=== PATIENT | male | born 1995 | race African-American/Black ===

== ENCOUNTER 2019-02-16 16:53 | Emergency (ER) | payer SELFPAY ==
[2019-02-16] MEDS ORDERED: LIDOCAINE 1% INJ-PF (10 MG/ML) 30 ML SDV INJ ONE (17:32)
--- NOTE | 2019-02-16 17:32 | ER Document Report ---
ED Medical Screen (RME) - General Chief Complaint: Abscess Stated Complaint: LEFT LEG PAIN Time Seen by Provider: 02/16/19 17:29 Primary Care Provider: JOAQUÍN OMER [Primary Care Provider] - Follow up as needed TRAVEL OUTSIDE OF THE [place] IN LAST 30 DAYS: No - HPI Notes: 02/16/19 17:31 Patient is a 24-year-old male with no significant past medical history who presents emergency department complaining of possible abscess to his left posterior upper leg that has been present for about 3-4 days. No history of MRSA or IV drug abuse. Denies STEPHENS, fever, neck pain, URI, CP, SOB, Abd pain, n/v/d. I have treated and performed a rapid initial assessment of this patient. A comprehensive ED assessment and evaluation of the patient, analysis of test results and completion of medical decision making process will be conducted by additional ED providers. PHYSICAL EXAMINATION: GENERAL: Well-appearing, well-nourished and in no acute distress. A&Ox4. Answers questions appropriately. LUNGS: Breath sounds clear to auscultation bilaterally and equal. No wheezes rales or rhonchi. HEART: Regular rate and rhythm without murmurs, rubs, gallops. Skin: abscess posterior left upper leg. + induration, tenderness, and some fluctuance present. - Related Data Allergies/Adverse Reactions: shrimp Allergy (Verified 02/16/19 16:54) Physical Exam - Vital signs Vitals: Temp Pulse Resp BP Pulse Ox 97.8 F 113 H 16 125/68 98 02/16/19 17:00 02/16/19 17:00 02/16/19 17:00 02/16/19 17:00 02/16/19 17:00 Course - Vital Signs Vital signs: Temp Pulse Resp BP Pulse Ox 97.8 F 113 H 16 125/68 98 02/16/19 17:00 02/16/19 17:00 02/16/19 17:00 02/16/19 17:00 02/16/19 17:00 Doctor's Discharge - Discharge Referrals: JOAQUÍN OMER [Primary Care Provider] - Follow up as needed
[2019-02-16] MEDS ORDERED: CLINDAMYCIN 900 MG/D5W RTU 900 MG/50 ML RTUPB IV ONE (19:11)
--- NOTE | 2019-02-16 20:09 | ER Document Report ---
ED Skin Rash/Insect Bite/Abscs - General Chief Complaint: Abscess Stated Complaint: LEFT LEG PAIN Time Seen by Provider: 02/16/19 17:29 Primary Care Provider: JOAQUÍN OMER [NO LOCAL MD] - Follow up as needed Mode of Arrival: Ambulatory Information source: Patient Notes: Patient is a 24-year-old male comes emergency room complaining of having an abscess on the back of his left thigh. Patient states it started on Wednesday with a small pimple he attempted to pop it and got a little bit of pus out of it he is attempted at least 3 times and the last time was this morning where he got a large amount of pus out of it. Now he states it is painful and is unable to hardly sit or walk on it. Patient states that she hardly even sit on the toilet. Denies any other medical problems does not smoke drink or do drugs. TRAVEL OUTSIDE OF THE [place] IN LAST 30 DAYS: No - HPI Patient complains to provider of: Tender/swollen area Onset: Other - 4 days Onset/Duration: Gradual, Worse Quality of pain: Achy, Sharp, Throbbing Severity: Moderate Pain Level: 3 Skin Character: Abscess, Drainage, Erythema Skin Temperature: Warm Quality of rash: Painful Identify cause: No - He also was a belly pain again Exacerbated by: Denies Relieved by: Denies Similar symptoms previously: No Recently seen / treated by doctor: No - Related Data Allergies/Adverse Reactions: shrimp Allergy (Verified 02/16/19 16:54) Past Medical History - General Information source: Patient - Good morning - Social History Smoking Status: Former Smoker Cigarette use (# per day): No Chew tobacco use (# tins/day): No Smoking Education Provided: No Frequency of alcohol use: None Drug Abuse: None Lives with: Alone Family History: Reviewed & Not Pertinent Patient has suicidal ideation: No Patient has homicidal ideation: No Renal/ Medical History: Denies: Hx Peritoneal Dialysis Review of Systems - Review of Systems Constitutional: No symptoms reported EENT: No symptoms reported Cardiovascular: No symptoms reported Respiratory: No symptoms reported Gastrointestinal: No symptoms reported Genitourinary: No symptoms reported Male Genitourinary: No symptoms reported Musculoskeletal: No symptoms reported Skin: See HPI, Other Hematologic/Lymphatic: No symptoms reported Neurological/Psychological: No symptoms reported Physical Exam - Vital signs Vitals: Temp Pulse Resp BP Pulse Ox 97.8 F 113 H 16 125/68 98 02/16/19 17:00 02/16/19 17:00 02/16/19 17:00 02/16/19 17:00 02/16/19 17:00 Interpretation: Tachycardic - Notes Notes: PHYSICAL EXAMINATION: GENERAL: Patient is a well-nourished well-developed 24-year-old male who is in no apparent distress on physical exam sitting however patient is alert does appear to be in moderate amount of discomfort. HEAD: Atraumatic, normocephalic. EYES: Pupils equal round and reactive to light, extraocular movements intact, sclera anicteric, conjunctiva are normal. NECK: Normal range of motion, supple without lymphadenopathy LUNGS: Breath sounds clear to auscultation bilaterally and equal. No wheezes rales or rhonchi. HEART: Regular rate and rhythm without murmurs Musculoskeletal: Patient cervical soreness in the back of the left thigh. There is an area there that is approximately 10 cm across with a central lesion that is approximately 2 cm round that is oozing a little bit of yellowish-palencia pus. Area is indurated moderately warm to touch. NEUROLOGICAL: Normal speech, normal gait. Normal sensory, motor exams PSYCH: Normal mood, normal affect. SKIN: Warm, Dry, normal turgor, no rashes or lesions noted. Course - Re-evaluation Re-evalutation: 02/16/19 20:10 Patient post I&D is doing much better. There is a large amount of pus that was taken approximately 30 to 40 cc of thick greenish-yellow pus was expressed out of the wound. - Vital Signs Vital signs: Temp Pulse Resp BP Pulse Ox 97.8 F 113 H 16 125/68 98 02/16/19 17:00 02/16/19 17:00 02/16/19 17:00 02/16/19 17:00 02/16/19 17:00 Procedures - Incision and Drainage Left Lower Thigh Time completed: 20:11 Type: Complex Anesthetic type: 1% Lidocaine mL's of anesthetic: 8 Blade size: 11 I&D procedure: Betadine prep applied Incision Method: Incision made by scalpel Amount/type of drainage: 30 ML Discharge - Discharge Clinical Impression: Abscess Condition: Good Disposition: HOME, SELF-CARE Instructions: Abscess ([facility]), Cephalexin ([facility]), Oral Narcotic Medication ([facility]), Post Incision and Drainage Additional Instructions: Home to use warm moist compresses 3-4 times a day for approximately 10 to 20 minutes. Change the dressing out when wet and dirty. Be careful when you peel off the tape and will need to be monitoring there is a little piece of string so you do not pull it out with it. Then reapply the dressing after cleaning or taking a shower. Do not get [facility] a [facility] or bath. You can I enter 1 of these facilities until such time as the wound is closed to self back up. Should you have any concerns or problems he can return to ER for recheck. Highly suggest you come back in about 48 hours for us to remove the packing and to see how the wound is doing. If for any reason you think it is not healing very well or there is more pus coming out to you think there should be come back sooner. Take all of your meds as directed. And please finish them all. Referrals: LOCALMD,NO [NO LOCAL MD] - Follow up as needed
[2019-02-16 20:19] LABS: ABSOLUTE BASOPHILS # (AUTO) 0.1 10^3/uL (0.0-0.2); ABSOLUTE EOSINOPHILS # (AUTO) 0.1 10^3/uL (0.0-0.6); ABSOLUTE LYMPHOCYTES (AUTO) 1.8 10^3/uL (0.5-4.7); ABSOLUTE MONOCYTES (AUTO) 0.9 10^3/uL (0.1-1.4); ABSOLUTE NEUT (AUTO) 3.9 10^3/uL (1.7-8.2); BASOPHILS % (AUTO) 0.8 % (0-2); EOSINOPHILS % (AUTO) 1.1 % (0-6); HEMATOCRIT 39.9 % (37.9-51.0); HEMOGLOBIN 13.7 g/dL (13.5-17.0); LYMPHOCYTES % (AUTO) 26.3 % (13-45); MEAN CORPUSCULAR HEMOGLOBIN 29.2 pg (27.0-33.4); MEAN CORPUSCULAR HGB CONC 34.3 g/dL (32.0-36.0); MEAN CORPUSCULAR VOLUME 85 fl (80-97); MONOCYTES % (AUTO) 13.2 % (3-13); PLATELET COUNT 278 10^3/uL (150-450); RED BLOOD COUNT 4.69 10^6/uL (4.35-5.55); RED CELL DISTRIBUTION WIDTH 12.8 % (11.5-14.0); SEGMENTED NEUTROPHILS % (AUTO) 58.6 % (42-78); TOTAL CELLS COUNTED % (AUTO) 100 %; WHITE BLOOD COUNT 6.7 10^3/uL (4.0-10.5)
[2019-02-16] MEDS ORDERED: HYDROCODONE/ACETAMINOPHEN 5-325 MG TABLET PO ONE (20:19)
[2019-02-16 20:39] VITALS: BP 100/82
== END 2019-02-16 20:39 | disposition home or self-care (01) ==
LOC: ER 16:53
PROC: 0H9JXZZ Drainage of Left Upper Leg Skin, External Approach (ICD-10-PCS; principal; 2019-02-16)
DX: L02.416 Cutaneous abscess of left lower limb (principal); M79.605 Pain in left leg; Z87.891 Personal history of nicotine dependence
CPT/HCPCS: 36415; 87040; 87070; 87205; 85025; 87075; 87077; 87186; 10060; A6266

== ENCOUNTER 2019-04-09 00:34 | Emergency (ER) | payer SELFPAY ==
[2019-04-09 00:48] VITALS: BP 137/69
== END 2019-04-09 04:50 | disposition left against medical advice (07) ==
LOC: ER 00:34
DX: Z53.21 Procedure and treatment not carried out due to patient leaving prior to being seen by health care provider (principal)

== ENCOUNTER 2019-04-09 08:21 | Emergency (ER) | payer SELFPAY ==
--- NOTE | 2019-04-09 09:50 | RADIOLOGY REPORT (SQ) ---
EXAM DESCRIPTION: FINGER RIGHT COMPLETED DATE/TIME: 04/09/2019 9:39 am REASON FOR STUDY: pain in index finger, swollen COMPARISON: None. NUMBER OF VIEWS: Three views right hand and index finger LIMITATIONS: None. FINDINGS: Suspect soft tissue swelling along the index finger. No fracture or bone lesions. No bon e erosion. No radiopaque foreign body. OTHER: No other significant finding. IMPRESSION: As above. TECHNICAL DOCUMENTATION: JOB ID: [id number] Reading location - IP/workstation name: [email or web address]
[2019-04-09] MEDS ORDERED: MUPIROCIN 2% OINTMENT 22 GM TP ONE (10:17)
--- NOTE | 2019-04-09 10:22 | ER Document Report ---
HPI - HPI Patient complains to provider of: index finger pain Time Seen by Provider: 04/09/19 09:01 Onset: Other - 3 days Onset/Duration: Persistent Quality of pain: Achy, Throbbing Severity: Severe Pain Level: 5 Context: Patient presents emergency department with complaints of right index finger tip pain. Patient reports he bites his nails. He reports he noted pus formation tried to poke it to drain it but it did not help. Denies other symptoms such as fever vomiting diarrhea but reports pain when touched to the area. Associated Symptoms: None Exacerbated by: Movement Relieved by: Denies Similar symptoms previously: No Recently seen / treated by doctor: No - CONSTITUTIONAL Constitutional: DENIES: Fever, Chills Past Medical History - General Information source: Patient - Social History Smoking Status: Former Smoker Frequency of alcohol use: None Drug Abuse: None Family History: Reviewed & Not Pertinent Patient has suicidal ideation: No Patient has homicidal ideation: No - Medical History Medical History: Negative Renal/ Medical History: Denies: Hx Peritoneal Dialysis Surgical Hx: Negative Vertical Provider Document - CONSTITUTIONAL Agree With Documented VS: Yes Exam Limitations: No Limitations General Appearance: WD/WN, No Apparent Distress - winces when finger palpated - INFECTION CONTROL TRAVEL OUTSIDE OF THE [place] IN LAST 30 DAYS: No - HEENT HEENT: Atraumatic, Pharyngeal Erythema - NECK Neck: Supple - RESPIRATORY Respiratory: No Respiratory Distress - CARDIOVASCULAR Cardiovascular: Regular Rate - MUSCULOSKELETAL/EXTREMETIES Musculoskeletal/Extremeties: Tender - left index finger swollen, ttp, erythema - NEURO Level of Consciousness: Awake, Alert Motor/Sensory: No Motor Deficit - DERM Integumentary: Warm, Dry Course - Re-evaluation Re-evalutation: 04/09/19 10:21 Will soak finger to evaluate more clearly for possibility felon vs paronychia - Vital Signs Vital signs: Temp Pulse Resp BP Pulse Ox 97.4 F 62 18 133/76 H 97 04/09/19 08:30 04/09/19 08:30 04/09/19 08:30 04/09/19 08:30 04/09/19 08:30
--- NOTE | 2019-04-09 10:54 | ER Document Report ---
ED Medical Screen (RME) - General Chief Complaint: Hand Pain Stated Complaint: FINGER PAIN Time Seen by Provider: 04/09/19 09:01 Mode of Arrival: Ambulatory Information source: Patient Notes: Patient presents emergency department with complaints of right index finger tip pain. Patient reports he bites his nails. He reports he noted pus formation tried to poke it to drain it but it did not help. Denies other symptoms such as fever vomiting diarrhea but reports pain when touched to the area. Dr. Hood in to assess advises lab work, possible tenosynovitis I have greeted and performed a rapid initial assessment of this patient. A comprehensive ED assessment and evaluation of the patient, analysis of test results and completion of the medical decision making process will be conducted by additional ED providers. Dictation of this chart was performed using voice recognition software; therefore, there may be some unintended grammatical errors. TRAVEL OUTSIDE OF THE [place] IN LAST 30 DAYS: No - Related Data Allergies/Adverse Reactions: shrimp Allergy (Verified 02/16/19 16:54) Past Medical History - Social History Frequency of alcohol use: None Drug Abuse: None Renal/ Medical History: Denies: Hx Peritoneal Dialysis Physical Exam - Vital signs Vitals: Temp Pulse Resp BP Pulse Ox 97.4 F 62 18 133/76 H 97 04/09/19 08:30 04/09/19 08:30 04/09/19 08:30 04/09/19 08:30 04/09/19 08:30 Course - Vital Signs Vital signs: Temp Pulse Resp BP Pulse Ox 97.4 F 62 18 133/76 H 97 04/09/19 08:30 04/09/19 08:30 04/09/19 08:30 04/09/19 08:30 04/09/19 08:30
[2019-04-09] MEDS ORDERED: OXYCODONE-ACETAMINOPHEN 5-325 MG TABLET PO ONE (10:55)
[2019-04-09 11:44] LABS: ABSOLUTE BASOPHILS # (AUTO) 0.1 10^3/uL (0.0-0.2); ABSOLUTE EOSINOPHILS # (AUTO) 0.1 10^3/uL (0.0-0.6); ABSOLUTE LYMPHOCYTES (AUTO) 1.4 10^3/uL (0.5-4.7); ABSOLUTE MONOCYTES (AUTO) 0.8 10^3/uL (0.1-1.4); ABSOLUTE NEUT (AUTO) 3.4 10^3/uL (1.7-8.2); EOSINOPHILS % (AUTO) 1.6 % (0-6); HEMATOCRIT 39.3 % (37.9-51.0); HEMOGLOBIN 13.2 g/dL (13.5-17.0); LYMPHOCYTES % (AUTO) 25.1 % (13-45); MEAN CORPUSCULAR HEMOGLOBIN 28.5 pg (27.0-33.4); MEAN CORPUSCULAR HGB CONC 33.6 g/dL (32.0-36.0); MEAN CORPUSCULAR VOLUME 85 fl (80-97); MONOCYTES % (AUTO) 14.2 % (3-13); PLATELET COUNT 348 10^3/uL (150-450); RED BLOOD COUNT 4.63 10^6/uL (4.35-5.55); RED CELL DISTRIBUTION WIDTH 13.8 % (11.5-14.0); SEGMENTED NEUTROPHILS % (AUTO) 58.1 % (42-78); TOTAL CELLS COUNTED % (AUTO) 100 %; WHITE BLOOD COUNT 5.8 10^3/uL (4.0-10.5)
[2019-04-09 11:59] LABS: ALANINE AMINOTRANSFERASE 38 U/L (21-72); ALBUMIN 3.7 g/dL (3.5-5.0); ALKALINE PHOSPHATASE 75 U/L (38-126); ANION GAP 5 (5-19); ASPARTATE AMINO TRANSFERASE 25 U/L (17-59); BILIRUBIN,DIRECT 0.2 mg/dL (0.0-0.4); BILIRUBIN,TOTAL 0.2 mg/dL (0.2-1.3); BLOOD UREA NITROGEN 11 mg/dL (7-20); CALCIUM 9.1 mg/dL (8.4-10.2); CARBON DIOXIDE 31 mmol/L (22-30); CHLORIDE 106 mmol/L (98-107); GLUCOSE 95 mg/dL (75-110); POTASSIUM 4.5 mmol/L (3.6-5.0); SODIUM 142.4 mmol/L (137-145); TOTAL PROTEIN 7.6 g/dL (6.3-8.2)
[2019-04-09 12:27] LABS: ERYTHROCYTE SEDIMENTATION RATE 47 mm/hr (0-15)
[2019-04-09] MEDS ORDERED: LIDOCAINE 1% INJ-PF (10 MG/ML) 30 ML SDV INJ ONE (13:45)
[2019-04-09 14:32] VITALS: BP 115/81
[2019-04-09] MEDS ORDERED: HYDROCODONE/ACETAMINOPHEN 5-325 MG (6 TAB/ER DISP) PO PRN (14:42)
[2019-04-09] MEDS ORDERED: CEFTRIAXONE INJ 1000 MG VIAL IM ONE (14:42)
--- NOTE | 2019-04-09 14:43 | ER Document Report ---
ED General - General Mode of Arrival: Ambulatory TRAVEL OUTSIDE OF THE [place] IN LAST 30 DAYS: No <SILVIA CESAR - Last Filed: 04/09/19 14:41> <FERNANDEZ MYERS - Last Filed: 04/09/19 14:51> - General Chief Complaint: Hand Pain Stated Complaint: FINGER PAIN Time Seen by Provider: 04/09/19 09:01 Notes: Patient presents emergency department with complaints of right index finger tip pain. Patient reports he bites his nails. He reports he noted pus formation tried to poke it to drain it but it did not help. Denies other symptoms such as fever vomiting diarrhea but reports pain when touched to the area. Dr. Hood in to assess advises lab work, possible tenosynovitis (SILVIA CESAR) - Related Data Allergies/Adverse Reactions: shrimp Allergy (Verified 02/16/19 16:54) Past Medical History - General Information source: Patient - Social History Smoking Status: Never Smoker Frequency of alcohol use: None Drug Abuse: Marijuana Family History: Reviewed & Not Pertinent Patient has suicidal ideation: No Patient has homicidal ideation: No Renal/ Medical History: Denies: Hx Peritoneal Dialysis <SILVIA CESAR - Last Filed: 04/09/19 14:41> - Vital signs Vitals: Temp Pulse Resp BP Pulse Ox 97.4 F 62 18 133/76 H 97 04/09/19 08:30 04/09/19 08:30 04/09/19 08:30 04/09/19 08:30 04/09/19 08:30 Course - Laboratory Result Diagrams: 04/09/19 11:30 04/09/19 11:30 <SILVIA CESAR - Last Filed: 04/09/19 14:41> - Laboratory Result Diagrams: 04/09/19 11:30 04/09/19 11:30 <FERNANDEZ MYERS - Last Filed: 04/09/19 14:51> - Vital Signs Vital signs: Temp Pulse Resp BP Pulse Ox 97.9 F 76 16 115/81 100 04/09/19 14:31 04/09/19 14:31 04/09/19 14:31 04/09/19 14:31 04/09/19 14:31 - Laboratory Laboratory results interpreted by me: 04/09/19 04/09/19 11:30 11:30 Hgb 13.2 L Monocytes % 14.2 H ESR 47 H Carbon Dioxide 31 H Discharge <SILVIA CESAR - Last Filed: 04/09/19 14:41> <FERNANDEZ MYERS - Last Filed: 04/09/19 14:51> - Discharge Clinical Impression: Felon of finger of right hand Condition: Stable Disposition: HOME, SELF-CARE Prescriptions: Cephalexin Monohydrate [Keflex 500 mg Capsule] 500 mg PO Q6H 7 Days capsule
[2019-04-09] MEDS ORDERED: LIDOCAINE 1% INJ-PF (10 MG/ML) 30 ML SDV ONE (14:55)
--- NOTE | 2019-04-09 15:03 | ER Document Report ---
ED General - General Chief Complaint: Hand Pain Stated Complaint: FINGER PAIN Time Seen by Provider: 04/09/19 09:01 Mode of Arrival: Ambulatory Notes: 24-year-old healthy [id number] male presents the emergency department for right index finger pain x4 days. He states that he has had swelling and redness that extends past his DIP of his right index finger. He says the pain is severe, acute and throbbing in nature. He states "I can feel my heartbeat in my finger". He is able to flex and extend the finger but his range of motion is severely limited by hand pain. Patient denies fever, chills, nausea, vomiting, swelling of the right hand, red streaks going up his arms, or any other symptoms. TRAVEL OUTSIDE OF THE [place] IN LAST 30 DAYS: No - Related Data Allergies/Adverse Reactions: shrimp Allergy (Verified 02/16/19 16:54) Past Medical History - General Information source: Patient - Social History Smoking Status: Never Smoker Frequency of alcohol use: None Drug Abuse: Marijuana Family History: Reviewed & Not Pertinent Patient has suicidal ideation: No Patient has homicidal ideation: No Renal/ Medical History: Denies: Hx Peritoneal Dialysis Review of Systems - Review of Systems Constitutional: See HPI EENT: No symptoms reported Cardiovascular: No symptoms reported Respiratory: No symptoms reported Gastrointestinal: See HPI Genitourinary: No symptoms reported Male Genitourinary: No symptoms reported Musculoskeletal: See HPI Skin: See HPI Hematologic/Lymphatic: No symptoms reported Neurological/Psychological: No symptoms reported Physical Exam - Vital signs Vitals: Temp Pulse Resp BP Pulse Ox 97.4 F 62 18 133/76 H 97 04/09/19 08:30 04/09/19 08:30 04/09/19 08:30 04/09/19 08:30 04/09/19 08:30 - Notes Notes: PHYSICAL EXAMINATION: Reviewed vital signs and charting by RN GENERAL: Alert, interacts well. No acute distress. HEAD: Normocephalic, atraumatic. EYES: Pupils equal, round, and reactive to light. Extraocular movements intact. ENT: Oral mucosa moist, tongue midline. NECK: Full range of motion. Supple. Trachea midline. LUNGS: Clear to auscultation bilaterally, no wheezes, rales, or rhonchi. No re spiratory distress. HEART: Regular rate and rhythm. No murmur ABDOMEN: soft, non-tender. No distention. Bowel sounds present EXTREMITIES: Moves all 4 extremities spontaneously. Right index finger edema, erythema, acute tenderness to light palpation, no evidence of purulent discharge PSYCH: Normal affect, normal mood. SKIN: Warm, dry, normal turgor. No rashes or lesions noted. Course - Re-evaluation Re-evalutation: 04/09/19 15:00 Overall well-appearing, patient is in acute distress. Presentation most consistent with a felon of the right index finger. I performed an incision and drainage after performing a digital block of the right index finger by making a small incision with a #15 blade on the medial and lateral aspect of the right index finger approximately 2 to 3 mm in length. There was blood but no purulent discharge. A wound culture was sent. Lab work was obtained and patient had no leukocytosis and was afebrile. It was a significant felon so I instructed the patient it was critical that he has 24-hour follow-up. I gave him the information for [facility] for surgeries and if that was not feasible he needed to return to the emergency department for 24-hour follow-up here. I gave him Rocephin 1 g IM here in the emergency department and prescribed him Keflex 500 mg 4 times per day for 7 days. At this time he is stable for discharge. - Vital Signs Vital signs: Temp Pulse Resp BP Pulse Ox 97.9 F 76 16 115/81 100 04/09/19 14:31 04/09/19 14:31 04/09/19 14:31 04/09/19 14:31 04/09/19 14:31 - Laboratory Result Diagrams: 04/09/19 11:30 04/09/19 11:30 Laboratory results interpreted by me: 04/09/19 04/09/19 11:30 11:30 Hgb 13.2 L Monocytes % 14.2 H ESR 47 H Carbon Dioxide 31 H Procedures - Incision and Drainage Right Finger 2nd digit Type: Simple Anesthetic type: 1% Lidocaine Blade size: 16 I&D procedure: Shurclens applied Incision Method: Incision made by scalpel Discharge - Discharge Clinical Impression: Felon of finger of right hand Condition: Stable Disposition: HOME, SELF-CARE Additional Instructions: You were seen in the emergency department this afternoon for a felon of your right index finger. We performed an incision and drainage but were not able to express any purulent fluid from it. We did send it for culture. Also, you were given a shot in the emergency department of an antibiotic called Rocephin. Following the Rocephin, I have given you a prescription for a medication called Keflex 500 mg that you will take 1 capsule every 6 hours for 7 days. Because of the infection it is critically important that you get 24-hour follow-up. I am giving you the information for an orthopedic practice and I want you to call them first thing in the morning to see if you can get in to see them that day. There may be an associated cost factor so if that is a problem I need you to come into the emergency department for 24-hour follow-up tomorrow, April 10. If the orthopedic practice cannot see you tomorrow come to the emergency department for a recheck. If you start to develop fever, severe pain in the index finger, you get worsening swelling of the hand or your arm, you become very ill, you get intractable nausea or vomiting, or have any other concerning symptoms return to the emergency department sooner. Prescriptions: Cephalexin Monohydrate [Keflex 500 mg Capsule] 500 mg PO Q6H 7 Days capsule Referrals: SRIRAM NICOLE MD [ACTIVE STAFF] - Follow up as needed
== END 2019-04-09 15:21 | disposition home or self-care (01) ==
LOC: ER 08:21
DX: L03.011 Cellulitis of right finger (principal); M79.644 Pain in right finger(s); Z91.013 Allergy to seafood
CPT/HCPCS: 99283; 96372; 36415; 87070; 87205; 85025; 85652; 80053; 73140; 10060; J3490; J0696

== ENCOUNTER 2019-05-07 16:13 | Emergency (ER) | payer SELFPAY ==
[2019-05-07 16:22] VITALS: BP 120/70
[2019-05-07] MEDS ORDERED: SULFAMETHOXAZOLE/TRIMETHOPRIM 800-160 MG TABLET PO ONE (16:52)
[2019-05-07] MEDS ORDERED: CEPHALEXIN 500 MG CAPSULE PO ONE (16:52)
[2019-05-07] MEDS ORDERED: MUPIROCIN 2% OINTMENT 22 GM TP ONE (16:53)
--- NOTE | 2019-05-07 16:55 | ER Document Report ---
ED General - General Chief Complaint: Finger Injury Stated Complaint: FINGER PAIN Time Seen by Provider: 05/07/19 16:35 Mode of Arrival: Ambulatory Information source: Patient Notes: 24-year-old male presented to ED for complaint of right pointer finger pain due to an injury 2 weeks ago. He states the finger nail is hanging off and that is most what the pain is now in the finger. He states he also has facial pain from a pimple that he popped 2 weeks ago and is now painful and draining. The area to his face does have crusty yellow drainage. He also has a similar sore to his back he states that he scratched a pimple on his back and caused the sore. He states he knows he needed to get treated for this on his face but the main reason he is here today is because his mother and aunt are harassing him and talking about him because he is "homosexual "and they want him to be tested for HIV. He has agreed to be tested. TRAVEL OUTSIDE OF THE [place] IN LAST 30 DAYS: No - HPI Onset: Other - The pain to the finger has been for 2 weeks the pain to his face has been a week. Onset/Duration: Gradual, Persistent Quality of pain: Achy, Sharp Severity: Mild Pain Level: 1 Associated symptoms: Other - Facial sore open draining after he popped a pimple a week ago and sore finger from injury 2 weeks ago that has a nail that is just hanging on by a piece of skin. Exacerbated by: Other - Every time the fingernail moves or he touches the sore on his face Relieved by: Denies Similar symptoms previously: Yes Recently seen / treated by doctor: Yes - Related Data Allergies/Adverse Reactions: shrimp Allergy (Verified 02/16/19 16:54) Past Medical History - General Information source: Patient - Social History Smoking Status: Current Some Day Smoker Cigarette use (# per day): Yes Smoking Education Provided: Yes - 4 minutes Frequency of alcohol use: Rare Drug Abuse: Marijuana Family History: Reviewed & Not Pertinent - Past Medical History Cardiac Medical History: Reports: None Pulmonary Medical History: Reports: None EENT Medical History: Reports: None Neurological Medical History: Reports: None Endocrine Medical History: Reports: None Renal/ Medical History: Reports: None Malignancy Medical History: Reports None GI Medical History: Reports: None Musculoskeletal Medical History: Reports None Skin Medical History: Reports Hx Cellulitis, Reports Hx MRSA Psychiatric Medical History: Reports: None Traumatic Medical History: Reports: None Infectious Medical History: Reports: Hx MRSA Surgical Hx: Negative Past Surgical History: Reports: None Review of Systems - Review of Systems Constitutional: No symptoms reported EENT: No symptoms reported Cardiovascular: No symptoms reported Respiratory: No symptoms reported Gastrointestinal: No symptoms reported Genitourinary: No symptoms reported Male Genitourinary: No symptoms reported Musculoskeletal: Other - Pain to right index finger due to fingernail hanging on by a piece of skin Skin: Lesions - Crusty yellow lesion to the face and back Hematologic/Lymphatic: No symptoms reported Neurological/Psychological: No symptoms reported -: Yes All other systems reviewed and negative Physical Exam - Vital signs Vitals: Temp Pulse Resp BP Pulse Ox 99.3 F 105 H 18 120/70 98 05/07/19 16:20 05/07/19 16:20 05/07/19 16:20 05/07/19 16:20 05/07/19 16:20 Interpretation: Normal - General General appearance: Appears well, Alert - HEENT Head: Normocephalic, Atraumatic Eyes: Normal Pupils: PERRL - Respiratory Respiratory status: No respiratory distress Chest status: Nontender Breath sounds: Normal Chest palpation: Normal - Cardiovascular Rhythm: Regular Heart sounds: Normal auscultation Murmur: No - Abdominal Inspection: Normal Distension: No distension Bowel sounds: Normal Tenderness: Nontender Organomegaly: No organomegaly - Back Back: Normal, Nontender - Extremities General upper extremity: Normal inspection, Normal color, Normal ROM, Normal temperature General lower extremity: Normal inspection, Nontender, Normal color, Normal ROM, Normal temperature, Normal weight bearing. No: Jennifer's sign Hand: Tender - And index finger fingernail most of the way off of his finger hanging by a small piece of skin from an injury 2 weeks ago, Nail injury, No evidence of human bite, No evidence of FB - Neurological Neuro grossly intact: Yes Cognition: Normal Orientation: AAOx4 Ishan Coma Scale Eye Opening: Spontaneous Ishan Coma Scale Verbal: Oriented Ishan Coma Scale Motor: Obeys Commands Ishan Coma Scale Total: 15 Speech: Normal Motor strength normal: LUE, RUE, LLE, RLE Sensory: Normal - Psychological Associated symptoms: Normal affect, Normal mood - Skin Skin Temperature: Warm Skin Moisture: Dry Skin Color: Normal Skin irregularity: Lesion - Crusty yellow lesion to face and back Location of irregularity: Face, Back Irregularity with: Tenderness, Crusting, Inflammation, Weeping Course - Re-evaluation Re-evalutation: 05/07/19 20:45 Patient's mother was that with him on his visit and she was encouraging patient to tell what her concerns were. Patient stated that mother and aunt were concerned that he was HIV positive because he is homosexual. He requested that the HIV test be completed. It was reactive. It will be sent out for a confirmation. Patient was instructed to follow-up with the health department in the next couple days for follow-up. Patient was treated with Keflex and Bactrim for his impetigo as well Bactroban due to his history of MRSA positive infection in the past. Patient verbalized understanding and agreement with treatment plan and patient was discharged home. He was - Vital Signs Vital signs: Temp Pulse Resp BP Pulse Ox 99.3 F 105 H 18 120/70 98 05/07/19 16:20 05/07/19 16:20 05/07/19 16:20 05/07/19 16:20 05/07/19 16:20 Discharge - Discharge Clinical Impression: Impetigo face, Impetigo back, Fingernail injury right index finger, HIV antibody positive Condition: Stable Disposition: HOME, SELF-CARE Instructions: [facility] Additional Instructions: Impetigo You have a skin infection called impetigo. This infection is caused by germs growing between the skin layers. It spreads easily and is quite contagious. The usual treatment is with oral antibiotics, along with washing the sores and application of an antibiotic ointment. There's a new prescription antibiotic ointment which may allow some cases of impetigo to be treated without pills. Healing takes about a week. All involved areas should recover with no scarring. If there is significant worsening, or if new symptoms (such as dark urine, fever, chills, or red streaks) arise, call the doctor or return for re- examination. Cephalexin The antibiotic you've been prescribed is a member of the cephalosporin class. This type of antibiotic covers a wide variety of infections, including t hose of the skin, lungs, and urinary tract. It's useful for staph infections. This antibiotic is slightly similar to the penicillin family. In rare cases, a person who is allergic to penicillin will also be allergic to this medication. If you have had a severe allergic reaction to penicillin, and have not taken this antibiotic since that time, notify your doctor. Antibiotics which cover many germs ("broad spectrum" antibiotics) are more likely to cause diarrhea or "yeast" infections. Women prone to vaginal yeast problems may suffer an attack after taking this antibiotic. In infants, oral thrush (white spots "stuck" on the cheek) or yeast diaper rash may result. See your doctor if these problems occur. Call at once if you develop itching, hives, shortness of breath, or lightheadedness. Sulfa Medications The antibiotic you have received is a member of the sulfa family. These antibiotics are commonly used for eye, ear, lung, or urinary infections. Sulfa antibiotics are best taken on an empty stomach. Extra glasses of water help the kidney process the antibiotic. Sulfas are not recommended for infants under two months, or for women near the end of . Occasional side effects can include nausea or diarrhea. Stop the medication and notify your doctor at once if you develop any skin rash, bruising, jaundice (yellow color of the skin), itching, swelling, joint pain, faintness, or shortness of breath, or if you note any other new or unusual symptoms. Soap Cleansing Gently wash the wound daily using a mild soap (like Ivory, Phisoderm, Neutrogena). Use warm water, rubbing gently until all debris, ooze, and crusting have been washed from the wound. Allow to dry briefly (about 10 minutes) after cleaning. Repeat this cleansing at least three times a day until healed. Bactroban Ointment Bactroban is very effective against the germs that cause infection within the skin. It's useful for impetigo and other superficial infections. Deeper infections require antibiotics by mouth or by shot. Apply the medicine three times a day for one week, or longer if your doctor has advised it. Stop the medicine and call your doctor if you develop large blisters, severe itching, increasing pain, swelling, fever, or spreading redness. HIV antibody test came back reactive or positive. It has been sent to the lab for confirmation. You will need to follow-up with the health department this week. FOLLOW-UP CARE: If you have been referred to a physician for follow-up care, call the physicians office for an appointment as you were instructed or within the next two days. If you experience worsening or a significant change in your symptoms, notify the physician immediately or return to the Emergency Department at any time for re-evaluation. Prescriptions: Cephalexin Monohydrate [Keflex 500 mg Capsule] 500 mg PO Q6H #28 capsule Sulfamethoxazole/Trimethoprim [Bactrim Ds Tablet] 1 each PO BID #20 tablet Forms: Smoking Cessation Education
== END 2019-05-07 18:37 | disposition home or self-care (01) ==
LOC: ER 16:13
DX: S61.300A Unspecified open wound of right index finger with damage to nail, initial encounter (principal); X58.XXXA Exposure to other specified factors, initial encounter; L01.00 Impetigo, unspecified; F17.210 Nicotine dependence, cigarettes, uncomplicated; Z71.6 Tobacco abuse counseling; Z21 Asymptomatic human immunodeficiency virus [HIV] infection status; Z86.14 Personal history of Methicillin resistant Staphylococcus aureus infection; Z91.013 Allergy to seafood
CPT/HCPCS: 99283; 36415; 86701 ×2; 86702; J3490

== ENCOUNTER 2019-11-17 05:45 | Emergency (ER) | payer SELFPAY ==
--- NOTE | 2019-11-17 08:37 | ER Document Report ---
ED General - General Chief Complaint: Abscess Stated Complaint: HAND WOUND Time Seen by Provider: 11/17/19 08:25 Notes: CHIEF COMPLAINT: Abscess to right wrist for 4 days HPI: 24-year-old HIV-positive male sending to the emergency department c omplaining of an abscess on the right wrist over the last 4 days. Patient had a similar infection in February of last year states antibiotics made it better. Patient states he began picking at the area last night and it began draining. He has not been using hot compresses on the area. He denies fever or other complaints at this time ROS: See HPI - all other systems were reviewed and are otherwise negative Constitutional: no fever Integumentary: + rash, + abscess Allergy: no hives Musculoskeletal: + extremity pain or swelling Neurological: no numbness/tingling, no weakness MEDICATIONS: I agree with the patient medications as charted by the RN. ALLERGIES: I agree with the allergies as charted by the RN. PAST MEDICAL HISTORY/PAST SURGICAL HISTORY: Reviewed and agree as charted by RN. SOCIAL HISTORY: Reviewed and agree as charted by RN. FAMILY HISTORY: No significant familial comorbid conditions directly related to patient complaint EXAM: Reviewed vital signs as charted by RN. CONSTITUTIONAL: Alert and oriented and responds appropriately to questions. Well-appearing; well-nourished, no acute distress. Difficult to examine as patient will not stop putting his make-up on during the exam HEAD: Normocephalic; atraumatic EYES: Conjunctivae clear, sclerae non-icteric ENT: normal nose; no rhinorrhea; moist mucous membranes; pharynx without lesions noted NECK: Supple without meningismus CARD: symmetric distal pulses RESP: Normal chest excursion without splinting or tachypnea ABD/GI: non-distended BACK: The back appears normal EXT: Normal ROM in all joints; no cyanosis, no effusions, no edema SKIN: Normal color for age and race; warm; dry; good turgor; raised mildly indurated area measuring 3 cm on the volar right wrist radial side. No fluctuant areas. It is draining a small amount of purulent material. No significant cellulitis surrounding the area. NEURO: Moves all extremities equally; Motor and sensory function intact PSYCH: The patient's mood and manner are appropriate. Grooming and personal hygiene are appropriate. MDM: 24-year-old HIV-positive male with an abscess on the right wrist that is draining. I did offer further incision and drainage with the patient declines at this time. He will do warm compresses at home, had an abscess similar to this in February of last year per the records, states Bactrim and Keflex resolve the infection. Discussed return instructions for worsening symptoms TRAVEL OUTSIDE OF THE [place] IN LAST 30 DAYS: No - Related Data Allergies/Adverse Reactions: shrimp Allergy (Verified 11/17/19 05:54) Past Medical History - Social History Smoking Status: Current Every Day Smoker Frequency of alcohol use: None Drug Abuse: Marijuana Family History: Reviewed & Not Pertinent Patient has suicidal ideation: No Patient has homicidal ideation: No Pulmonary Medical History: Reports: Hx Asthma Renal/ Medical History: Denies: Hx Peritoneal Dialysis Skin Medical History: Reports Hx Cellulitis, Reports Hx MRSA Infectious Medical History: Reports: Hx MRSA Physical Exam - Vital signs Vitals: Temp Pulse BP Pulse Ox 98.4 F 113 H 132/68 H 98 11/17/19 05:52 11/17/19 05:52 11/17/19 05:52 11/17/19 05:52 Course - Vital Signs Vital signs: Temp Pulse Resp BP Pulse Ox 98.3 F 107 H 18 134/63 H 98 11/17/19 07:01 11/17/19 07:01 11/17/19 07:01 11/17/19 07:01 11/17/19 07:01 Discharge - Discharge Clinical Impression: Abscess of skin of right wrist Condition: Stable Disposition: HOME, SELF-CARE Instructions: Abscess ([facility]) Additional Instructions: 1. follow up with your primary care provider for further evaluation in 2-3 days 2. medicines as prescribed, take Tylenol or Motrin for pain 3. return sooner for any worsening condition, increasing redness or onset of fever 4. apply warm compresses to the wound area 2-3 times daily Prescriptions: Sulfamethoxazole/Trimethoprim [Bactrim Ds Tablet] 2 tab PO BID #28 tablet Cephalexin Monohydrate [Keflex 500 mg Capsule] 500 mg PO Q6H 5 Days capsule Referrals: FERNANDO LOGAN MD [ACTIVE STAFF] - Follow up as needed
[2019-11-17 08:55] VITALS: BP 115/76
== END 2019-11-17 08:55 | disposition home or self-care (01) ==
LOC: ER 05:45
DX: L02.413 Cutaneous abscess of right upper limb (principal); Z21 Asymptomatic human immunodeficiency virus [HIV] infection status; J45.909 Unspecified asthma, uncomplicated; F17.200 Nicotine dependence, unspecified, uncomplicated; F12.10 Cannabis abuse, uncomplicated; Z86.14 Personal history of Methicillin resistant Staphylococcus aureus infection; Z91.013 Allergy to seafood
CPT/HCPCS: 99282

== ENCOUNTER 2020-08-15 08:49 | Emergency (ER) | payer SELFPAY ==
[2020-08-15 08:56] VITALS: BP 131/72
[2020-08-15] MEDS ORDERED: SILVER SULFADIAZINE 1% CREAM 25 GM TP ONE (09:14)
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
== END 2020-08-15 09:45 | disposition home or self-care (01) ==
LOC: ER 08:49
DX: T22.211A Burn of second degree of right forearm, initial encounter (principal); X12.XXXA Contact with other hot fluids, initial encounter; Y93.G3 Activity, cooking and baking; Y92.009 Unspecified place in unspecified non-institutional (private) residence as the place of occurrence of the external cause; F17.200 Nicotine dependence, unspecified, uncomplicated; F12.10 Cannabis abuse, uncomplicated; J45.909 Unspecified asthma, uncomplicated; Z86.14 Personal history of Methicillin resistant Staphylococcus aureus infection; Z91.013 Allergy to seafood
CPT/HCPCS: 99283

== ENCOUNTER 2020-09-11 19:42 | Inpatient (IN) | payer SELFPAY ==
--- NOTE | 2020-09-11 21:17 | ER Document Report ---
ED Medical Screen (RME) - General Stated Complaint: SHORTNESS OF BREATH CHEST PAIN FEVER Time Seen by Provider: 09/11/20 21:08 Notes: Patient is a 25-year-old male presents emergency department with a chief complaint of shortness of breath, chest pain, difficulty breathing. Patient does have some rhinorrhea. Patient has a history of HIV, but is not currently on any medication. Patient does feel depressed and sad. Patient is not he has had any contact with anybody who tested positive for COVID-19. States when he lays down, he feels like he has a fever. Exam: Tachycardic I have greeted and performed a rapid initial assessment of this patient. A comprehensive ED assessment and evaluation of the patient, analysis of test results and completion of medical decision making process will be conducted by an additional ED providers. TRAVEL OUTSIDE OF THE [place] IN LAST 30 DAYS: No - Related Data Allergies/Adverse Reactions: shrimp Allergy (Verified 08/15/20 09:06) Past Medical History Pulmonary Medical History: Reports: Hx Asthma Renal/ Medical History: Denies: Hx Peritoneal Dialysis Skin Medical History: Reports Hx Cellulitis, Reports Hx MRSA Infectious Medical History: Reports: Hx MRSA
[2020-09-11] MEDS ORDERED: NORMAL SALINE 1000 ML 1,000 ML IV ONE (21:19)
--- NOTE | 2020-09-11 22:26 | RADIOLOGY REPORT (SQ) ---
CLINICAL INDICATION: Shortness of breath. TECHNIQUE: A single portable AP view was obtained of the chest at 2115 hours. COMPARISON: None. FINDINGS: The cardiomediastinal silhouette is normal. The lungs demonstrate airspace consolidative change right upper lobe with a similar patchy area left lower lobe. No evidence of effusion or pneumothorax. The visualized bones are unremarkable. IMPRESSION: Bilateral airspace disease consistent with bilateral pneumonia.
[2020-09-11] MEDS ORDERED: ACETAMINOPHEN 325 MG TABLET PO ONE (23:03)
--- NOTE | 2020-09-11 23:09 | ER Document Report ---
ED General - General Chief Complaint: Arrhythmia Stated Complaint: SHORTNESS OF BREATH CHEST PAIN FEVER Time Seen by Provider: 09/11/20 21:08 TRAVEL OUTSIDE OF THE [place] IN LAST 30 DAYS: No - HPI Notes: Patient is a 25-year-old male with a history of HIV, depression and anxiety who presents with cough for the past week. Patient states his symptoms were starting to improve but worsened 2 days ago. He describes his cough is productive with yellow/brown sputum. He reports left-sided and substernal chest pain chest pain but attributes this to his constant coughing. Patient states he is depressed due to issues with his family, specifically his brother. He states he feels "weak and vulnerable", but denies any suicidal or homicidal ideation. Patient reports lightheadedness, but denies fever, headache, sore throat, nausea, vomiting, diarrhea, and dysuria. Patient reports constipation for the past 3 days but states he is having daily bowel movements but has to strain. Patient is not aware of his viral load related to his HIV and has not been followed by a physician recently. Patient reports marijuana use, but denies tobacco and alcohol use. - Related Data Allergies/Adverse Reactions: shrimp Allergy (Verified 08/15/20 09:06) Past Medical History - General Information source: Patient - Social History Smoking Status: Former Smoker Frequency of alcohol use: None Drug Abuse: Marijuana Family History: Reviewed & Not Pertinent Pulmonary Medical History: Reports: Hx Asthma Renal/ Medical History: Denies: Hx Peritoneal Dialysis Skin Medical History: Reports Hx Cellulitis, Reports Hx MRSA Infectious Medical History: Reports: Hx MRSA Review of Systems - Review of Systems Constitutional: No symptoms reported EENT: No symptoms reported Cardiovascular: See HPI Respiratory: See HPI Gastrointestinal: No symptoms reported Genitourinary: No symptoms reported Male Genitourinary: No symptoms reported Musculoskeletal: No symptoms reported Skin: No symptoms reported Hematologic/Lymphatic: No symptoms reported Neurological/Psychological: See HPI Physical Exam - Vital signs Vitals: Temp Pulse Resp BP Pulse Ox 98.7 F 124 H 24 H 103/52 L 99 09/11/20 21:17 09/11/20 21:17 09/11/20 21:17 09/11/20 21:17 09/11/20 21:17 - Notes Notes: PHYSICAL EXAMINATION: VITALS: Vitals reviewed - tachycardia. GENERAL: Patient is tearful, laying in bed in mild distress. HEAD: Atraumatic, normocephalic. EYES: Pupils equal, round, and reactive to light, extraocular movements intact, sclera anicteric, conjunctiva are normal. ENT: Nares patent. Moist mucous membranes. Oropharynx clear without exudates. NECK: Normal range of motion, supple without lymphadenopathy. LUNGS: Breath sounds clear to auscultation bilaterally and equal. No wheezes, rales, or rhonchi. HEART: Tachycardia with regular rhythm without murmurs. CHEST WALL: Tenderness to the left chest wall. No visible deformities. ABDOMEN: Soft, nontender, normoactive bowel sounds. No guarding, no rebound. No masses appreciated. EXTREMITIES: Normal range of motion, no pitting or edema. No cyanosis. NEUROLOGICAL: No focal neurological deficits. Moves all extremities spontaneously and on command. PSYCH: Depressed mood and tearful, normal affect. SKIN: Warm, Dry, normal turgor, no rashes or lesions noted. Course - Re-evaluation Re-evalutation: Patient is a 25-year-old male with a history of HIV with unknown viral load, anxiety, and depression who presents with productive cough for the past week that worsened 2 days ago. Patient is tachycardic with heart rate in the 120s, but vital signs are otherwise unremarkable and patient is afebrile. On exam, left chest wall tenderness with tachycardia. Patient is tearful and depressed but denies any suicidal ideation. He is requesting mental health resources. 09/11/20 23:43 Chest XR shows bilateral airspace disease consistent with bilateral pneumonia. 09/12/20 00:03 Initial blood for troponin hemolyized and patient is refusing repeat blood draw. Risks of not having a troponin level with chest pain discussed with the patient. Patient demonstrates decision making capacity and understands the risks. Troponin lab will be canceled. 09/12/20 00:44 CBC shows an elevated WBC of 13.3 with 10% bandemia. CMP shows mild hyponatremia with Na of 132.8. Elevated Cr of 1.61 and BUN of 41. AST and ALK Phos elevated at 98 and 193. CK normal at 59. 09/12/20 01:10 I consulted my supervising physician, Dr. Harris, and based on his presentation and workup there is a significant concern for sepsis and he needs IV abx treatment for pneumonia. I spoke with the patient and made it clear how important it was that he stay for treatment and be admitted. We also discussed that patient would need another IV placed to draw some more labs and to administer antibiotics. Patient understands and is in agreement with the plan. Troponin, lactic acid, PT/IRN, UA and VBG ordered. 1g IV Rocephin, 500mg IV azithromycin and 320mg IV bactrim ordered for treatment of pneumonia and possible PJP as his viral load is unknown. 1mg IV ativan ordered as patient is extremely anxious. 09/12/20 02:[address] Cervantes, hospitalist, concerning this patient. He agree to accept the patient for inpatient admission to the [facility]. - Vital Signs Vital signs: Temp Pulse Resp BP Pulse Ox 98.7 F 124 H 27 H 88/54 L 99 09/11/20 21:17 09/11/20 21:17 09/11/20 23:00 09/12/20 05:01 09/12/20 04:58 - Laboratory Result Diagrams: 09/11/20 23:19 09/11/20 23:19 Laboratory results interpreted by me: 09/11/20 09/11/20 09/11/20 23:19 23:19 23:19 WBC 13.3 H RBC 4.14 L Hgb 11.6 L Hct 34.3 L RDW 14.5 H Band Neutrophils % 10 H Lymphocytes % (Manual) 11 L Abs Neuts (Manual) 10.8 H PT 16.8 H Sodium 132.8 L Chloride 95 L BUN 41 H Creatinine 1.61 H Est GFR (MDRD) Non-Af 53 L Lactic Acid Calcium 8.2 L Direct Bilirubin 0.8 H AST 78 H Alkaline Phosphatase 193 H Albumin 2.9 L 09/12/20 01:41 WBC RBC Hgb Hct RDW Band Neutrophils % Lymphocytes % (Manual) Abs Neuts (Manual) PT Sodium Chloride BUN Creatinine Est GFR (MDRD) Non-Af Lactic Acid 2.9 H Calcium Direct Bilirubin AST Alkaline Phosphatase Albumin - Diagnostic Test Radiology reviewed: Reports reviewed Radiology results interpreted by me: Chest X-Ray 09/11/20 21:12 IMPRESSION: Bilateral airspace disease consistent with bilateral pneumonia. - EKG Interpretation by Me Additional EKG results interpreted by me: Sinus tachycardia with a rate of 124. QTc 414. Normal axis. T wave inversions in anterior leads. No ST segment changes in consecutive leads. Discharge - Discharge Clinical Impression: HIV positive, Elevated serum creatinine, Bandemia Bilateral pneumonia Qualifiers: Pneumonia type: due to unspecified organism Lung location: unspecified part of lung Qualified Code(s): J18.9 - Pneumonia, unspecified organism Sepsis Qualifiers: Sepsis type: sepsis due to unspecified organism Sepsis acute organ dysfunction status: unspecified Qualified Code(s): A41.9 - Sepsis, unspecified organism Condition: Stable Disposition: ADMITTED INPATIENT Admitting Provider: Helen (Hospitalist) Unit Admitted: [facility]
[2020-09-11 23:31] LABS: HEMATOCRIT 34.3 % (37.9-51.0); HEMOGLOBIN 11.6 g/dL (13.5-17.0); MEAN CORPUSCULAR HEMOGLOBIN 28.1 pg (27.0-33.4); MEAN CORPUSCULAR HGB CONC 33.9 g/dL (32.0-36.0); MEAN CORPUSCULAR VOLUME 83 fl (80-97); PLATELET COUNT 345 10^3/uL (150-450); RED BLOOD COUNT 4.14 10^6/uL (4.35-5.55); RED CELL DISTRIBUTION WIDTH 14.5 % (11.5-14.0); WHITE BLOOD COUNT 13.3 10^3/uL (4.0-10.5)
[2020-09-11] MEDS ORDERED: ONDANSETRON HCL INJ/PF 4 MG/2 ML SDV IV ONE (23:32)
[2020-09-11 23:46] LABS: ALBUMIN 2.9 g/dL (3.5-5.0); ALKALINE PHOSPHATASE 193 U/L (38-126); ANION GAP 10 (5-19); ASPARTATE AMINO TRANSFERASE 78 U/L (17-59); BILIRUBIN,DIRECT 0.8 mg/dL (0.0-0.4); BILIRUBIN,TOTAL 1.3 mg/dL (0.2-1.3); BLOOD UREA NITROGEN 41 mg/dL (7-20); CALCIUM 8.2 mg/dL (8.4-10.2); CARBON DIOXIDE 28 mmol/L (22-30); CHLORIDE 95 mmol/L (98-107); CREATINE KINASE 59 U/L (55-170); GLUCOSE 96 mg/dL (75-110); POTASSIUM 4.8 mmol/L (3.6-5.0)
[2020-09-11 23:57] LABS: ABSOLUTE LYMPHOCYTES# (MANUAL) 1.5 10^3/uL (0.5-4.7); ABSOLUTE MONOCYTES # (MANUAL) 1.1 10^3/uL (0.1-1.4); BAND NEUTROPHILS % (MANUAL) 10 % (3-5); BASOPHILS % (MANUAL) 0 % (0-2); EOSINOPHILS % (MANUAL) 0 % (0-6); LYMPHOCYTES % (MANUAL) 11 % (13-45); METAMYELOCYTES % (MANUAL) 1 % (0-1); MONOCYTES % (MANUAL) 8 % (3-13); SEGMENTED NEUTROPHILS % (MAN) 70 % (42-78); TOTAL CELLS COUNTED 100
[2020-09-11 23:59] LABS: TOXIC GRANULATION 1+
[2020-09-12] LABS: ANISOCYTOSIS SLIGHT; HYPERSEGMENTED NEUTROPHILS PRESENT; PLATELET COMMENT ADEQUATE; PLATELET LARGE PRESENT; SCHISTOCYTES SLIGHT; TEAR DROP CELLS SLIGHT; TOXIC VACUOLATION PRESENT
[2020-09-12] MEDS ORDERED: SULFAMETHOX/TRIMETH 800-160 MG/10 ML VIAL IV ONE (01:02)
[2020-09-12] MEDS ORDERED: CEFTRIAXONE 1 GM/D5W RTU 1 GM/50 ML RTUPB IV ONE (01:05)
[2020-09-12] MEDS ORDERED: AZITHROMYCIN INJ 500 MG VIAL IV ONE (01:05)
[2020-09-12] MEDS ORDERED: LORAZEPAM INJ 2 MG/1 ML VIAL IV ONE (01:08)
--- NOTE | 2020-09-12 03:04 | PDOC H&P ---
History of Present Illness Patient complains of: Cough, shortness of breath, generalized weakness History of Present Illness: ALEXEI MAY is a 25 year old male with a history of HIV infection(with no follow-up and unknown CD4 count or viral load), depression and anxiety who presents with a 1 week duration of cough productive of yellowish sputum. He reports that the cough has been progressively getting worse and also endorses an associated pleuritic bilateral chest pain which gets worse with coughing. Patichu nt also states that he has been feeling more and more short of breath over the past 2 to 3 days. He also reports generalized weakness with loss of energy, subjective fever and chills but denies any nausea, vomiting, abdominal pain or diarrhea. He denies any recent sick contact history with anyone with similar symptoms. Patient also reports that he has been extremely anxious and he feels depressed. Past Medical History Pulmonary Medical History: Reports: Asthma Infectious Medical History: Reports: Methicillin-Resistant Staph Aureus Social History Information Source: Patient Lives with: Family Smoking Status: Former Smoker Hx Recreational Drug Use: Yes - Marijuana Drugs: Marijuana Hx Prescription Drug Abuse: No - Advance Directive Resuscitation Status: Full Code Family History Family History: Reviewed & Not Pertinent Parental Family History Reviewed: Yes Children Family History Reviewed: Yes Sibling(s) Family History Reviewed.: Yes Medication/Allergy Home Medications: Cephalexin Monohydrate [Keflex 500 mg Capsule] 500 mg PO Q6H 7 Days capsule 04/09/19 Cephalexin Monohydrate [Keflex 500 mg Capsule] 500 mg PO Q6H #28 capsule 05/07/19 Sulfamethoxazole/Trimethoprim [Bactrim Ds Tablet] 1 each PO BID #20 tablet 05/07/19 Cephalexin Monohydrate [Keflex 500 mg Capsule] 500 mg PO Q6H 5 Days capsule 11/17/19 Sulfamethoxazole/Trimethoprim [Bactrim Ds Tablet] 2 tab PO BID #28 tablet 11/17/19 Diclofenac Sodium [Voltaren 50 Mg Tablet.Dr] 50 mg PO BID #20 tablet.dr 08/15/20 Silver Sulfadiazine [Silvadene 1% Cream 25 gm] 1 applic TP BID 7 Days #1 tube Allergies/Adverse Reactions: shrimp Allergy (Verified 08/15/20 09:06) Review of Systems Constitutional: PRESENT: as per HPI Eyes: ABSENT: visual disturbances Ears: ABSENT: hearing changes Nose, Mouth, and Throat: ABSENT: as per HPI, headache(s), mouth pain, sore throat, vertigo, other Cardiovascular: ABSENT: chest pain, dyspnea on exertion, edema, orthropnea, palpitations Respiratory: PRESENT: as per HPI Gastrointestinal: PRESENT: as per HPI Genitourinary: ABSENT: dysuria, hematuria Musculoskeletal: ABSENT: joint swelling Integumentary: ABSENT: rash, wounds Neurological: ABSENT: abnormal gait, abnormal speech, confusion, dizziness, focal weakness, syncope Psychiatric: PRESENT: anxiety, depression Endocrine: ABSENT: cold intolerance, heat intolerance, polydipsia, polyuria Hematologic/Lymphatic: ABSENT: easy bleeding, easy bruising Physical Exam Vital Signs: Temp Pulse Resp BP Pulse Ox 98.7 F 124 H 27 H 100/61 89 L 09/11/20 21:17 09/11/20 21:17 09/11/20 23:00 09/12/20 02:01 09/12/20 02:02 Intake & Output 09/10/20 09/11/20 09/12/20 06:59 06:59 06:59 Weight 59.874 kg Additional comments: GENERAL APPEARANCE: Patient appears anxious and restless, tachypneic but saturating well on room air HEENT: Normocephalic and atraumatic. No scleral icterus. Dry oral mucosa NECK: Supple. No evidence of thyroid enlargement. No JVD CHEST: Symmetric. Nontender to palpation. LUNGS: Has coarse crackles bilaterally but good air entry on auscultation. HEART: Tachycardic with normal S1 and S2. No murmurs, gallops, or rubs. ABDOMEN: Flat, normoactive bowel sounds, soft, no tenderness, no mass or organomegaly appreciated. No CVA tenderness EXTREMITIES: No cyanosis, clubbing, or edema. MUSCULOSKELETAL: No deformity, atrophy or swelling noted PSYCHIATRIC: The patient is awake, alert, and oriented x3. Patient is very anxious and restless during the exam SKIN: Warm, dry, and well perfused. No lesions or rashes are noted. NEUROLOGIC: No focal sensory or motor deficits are noted. Results Laboratory Results: 09/11/20 23:19 09/11/20 23:19 09/11/20 09/11/20 09/12/20 23:19 23: 01:41 WBC 13.3 H RBC 4.14 L Hgb 11.6 L Hct 34.3 L MCV 83 MCH 28.1 MCHC 33.9 RDW 14.5 H Plt Count 345 Seg Neutrophils % Not Reportable Sodium 132.8 L Potassium 4.8 Chloride 95 L Carbon Dioxide 28 Anion Gap 10 BUN 41 H Creatinine 1.61 H Est GFR ( Amer) > 60 Glucose 96 Lactic Acid 2.9 H Calcium 8.2 L Total Bilirubin 1.3 AST 78 H Alkaline Phosphatase 193 H Total Protein 7.0 Albumin 2.9 L 09/11/20 09/11/20 09/12/20 23:19 23:19 01:41 Creatine Kinase 59 Troponin I Cancelled < 0.012 Impressions: Chest X-Ray 09/11/20 21:12 IMPRESSION: Bilateral airspace disease consistent with bilateral pneumonia. Assessment and Plan - Diagnosis (1) Sepsis Qualifiers: Sepsis type: sepsis due to unspecified organism Sepsis acute organ dysfunction status: unspecified Qualified Code(s): A41.9 - Sepsis, unspecified organism Is this a current diagnosis for this admission?: Yes Plan: Patient presents with cough, subjective fever, shortness of breath Meets sepsis criteria SIRS: 3/4, qSOFA: 2/3 Likely source of infection pneumonia Has leukocytosis with left shift lactic acid level of 2.9 Continue IV hydration and closely monitor vitals Started on ceftriaxone and azithromycin Patient also placed on sulfamethoxazole/trimethoprim for possible PCP (2) Bilateral pneumonia Qualifiers: Pneumonia type: due to unspecified organism Lung location: unspecified part of lung Qualified Code(s): J18.9 - Pneumonia, unspecified organism Is this a current diagnosis for this admission?: Yes Plan: Chest x-ray showing bilateral airspace disease suggestive of bilateral pneumonia Patient has a history of HIV infection with no known viral load or CD4 count Likely differential include community-acquired pneumonia versus PCP Has leukocytosis with left shift Started on ceftriaxone, azithromycin and Bactrim Placed patient on steroid Follow-up with blood culture and sputum cultures (3) Acute kidney injury Is this a current diagnosis for this admission?: Yes Plan: BUN/creatinine on this presentation 41/1.6 Will obtain urine creatinine and sodium to calculate FeNa Continue IV hydration Closely monitor renal indices Renally dose medications and avoid nephrotoxic's (4) Depression with anxiety Is this a current diagnosis for this admission?: Yes Plan: Reports depressed mood and excessive anxiety Psychiatry has already been consulted at the ED Follow-up with recommendations (5) HIV positive Is this a current diagnosis for this admission?: Yes Plan: Currently not following with any PCP or ID Would benefit from obtaining viral load and CD4 count - Time Time Spent with patient: 35 or more minutes Total Critical Time (Minutes): 50 Medications reviewed and adjusted accordingly: Yes Anticipated Discharge Disposition: Home, Self Care Anticipated Discharge Timeframe: within 72 hours - Inpatient Certification Based on my medical assessment, after consideration of the patient's comorbidities, presenting symptoms, or acuity I expect that the services needed warrant INPATIENT care.: Yes I certify that my determination is in accordance with my understanding of Medicare's requirements for reasonable and necessary INPATIENT services [42 CFR 412.3e].: Yes Medical Necessity: Need Close Monitoring Due to Risk of Patient Decompensation, Need For IV Fluids, Need for IV Antibiotics, Risk of Complication if Not Cared For in Hospital Post Hospital Care: D/C or Transfer Summary
[2020-09-12 03:41] LABS: INTERNATIONAL RATION (INR) 1.34; PROTHROMBIN TIME 16.8 SEC (11.4-15.4)
[2020-09-12] MEDS: HEPARIN SOD (PORCINE) 5,000 UNIT/ML 1 ML VIAL SUBCUT SCH ×3 (05:40→21:56)
[2020-09-12] MEDS ORDERED: SULFAMETHOXAZOLE/TRIMETHOPRIM 320 MG in DEXTROSE 5%-WATER 500 ML IV SCH ×2 (06:00→09:00)
[2020-09-12] MEDS ORDERED: NORMAL SALINE 1000 ML 3,000 ML IV ONE (08:27)
[2020-09-12] MEDS ORDERED: CODEINE SULF 15 MG TABLET PO PRN (08:33)
[2020-09-12 09:06] LABS: VENOUS BLOOD HCO3 25.6 mmol/L (20-32); VENOUS BLOOD PCO2 57.4 mmHg (35-63); VENOUS BLOOD PH 7.27 (7.30-7.42)
[2020-09-12 09:15] LABS: HEMATOCRIT 32.9 % (37.9-51.0); HEMOGLOBIN 10.8 g/dL (13.5-17.0); MEAN CORPUSCULAR HEMOGLOBIN 27.7 pg (27.0-33.4); MEAN CORPUSCULAR VOLUME 84 fl (80-97); PLATELET COUNT 286 10^3/uL (150-450); RED BLOOD COUNT 3.91 10^6/uL (4.35-5.55); RED CELL DISTRIBUTION WIDTH 14.5 % (11.5-14.0)
[2020-09-12 09:34] LABS: A TYPE INFLUENZA AG NEGATIVE (NEGATIVE); B INFLUENZA AG NEGATIVE (NEGATIVE)
[2020-09-12] MEDS: FAMOTIDINE 20 MG TABLET PO SCH ×2 (09:36→21:57)
[2020-09-12] MEDS: ACETAMINOPHEN 325 MG TABLET PO PRN (09:37)
[2020-09-12] MEDS: GUAIFENESIN 600 MG TABLET.SA PO SCH ×2 (09:37→21:57)
[2020-09-12] MEDS ORDERED: PREDNISONE 20 MG TABLET PO SCH ×2 (10:00)
[2020-09-12 10:36] LABS: ABSOLUTE LYMPHOCYTES# (MANUAL) 1.2 10^3/uL (0.5-4.7); ABSOLUTE MONOCYTES # (MANUAL) 1.2 10^3/uL (0.1-1.4); BASOPHILS % (MANUAL) 0 % (0-2); EOSINOPHILS % (MANUAL) 0 % (0-6); LYMPHOCYTES % (MANUAL) 3 % (13-45); MONOCYTES % (MANUAL) 3 % (3-13); SEGMENTED NEUTROPHILS % (MAN) 82 % (42-78); TOTAL CELLS COUNTED 100
[2020-09-12 10:37] LABS: ANISOCYTOSIS SLIGHT
[2020-09-12 10:38] LABS: OVALOCYTES 1+; PLATELET CLUMPS PRESENT; PLATELET COMMENT ADEQUATE; POIKILOCYTOSIS 1+; TEAR DROP CELLS 1+
[2020-09-12 10:39] LABS: SMUDGE CELLS PRESENT; TOXIC GRANULATION 1+
[2020-09-12 10:41] LABS: WHITE BLOOD COUNT 40.1 10^3/uL (4.0-10.5)
[2020-09-12 10:42] LABS: BAND NEUTROPHILS % (MANUAL) 12 % (3-5); HYPERSEGMENTED NEUTROPHILS PRESENT
--- NOTE | 2020-09-12 11:33 | Progress Note ---
Provider Note Provider Note: Patient was evaluated in the ED with RN at bedside. Prior to my arrival, he had been refusing lab work and medications and was threatening to leave AMA. I discussed with him that he is very ill, septic, and at high risk for bad outcomes (including ) if he does not stay to get care in the hospital. He seemed to understand - he became calm, quiet and tearful, and agreed to stay for further work up and ongoing care. He agreed to repeat lab work. After speaking with and examining patient, I left his room. He subsequently unexpectedly eloped from the ED. Law enforcement has been contacted as he eloped with multiple peripheral IVs in place.
[2020-09-12 12:10] LABS: ALBUMIN 2.8 g/dL (3.5-5.0); ALKALINE PHOSPHATASE 203 U/L (38-126); ANION GAP 14 (5-19); ASPARTATE AMINO TRANSFERASE 47 U/L (17-59); BILIRUBIN,TOTAL 1.3 mg/dL (0.2-1.3); BLOOD UREA NITROGEN 39 mg/dL (7-20); CALCIUM 8.3 mg/dL (8.4-10.2); CARBON DIOXIDE 22 mmol/L (22-30); CHLORIDE 100 mmol/L (98-107); GLUCOSE 114 mg/dL (75-110); POTASSIUM 5.2 mmol/L (3.6-5.0); TOTAL PROTEIN 6.8 g/dL (6.3-8.2)
[2020-09-12 12:26] LABS: ARTERIAL BLOOD BASE EXCESS -3.6 mmol/L; ARTERIAL BLOOD FIO2 ROOM AIR; ARTERIAL BLOOD H2CO3 1.14 mmol/L (1.05-1.35); ARTERIAL BLOOD HCO3 21.3 mmol/L (20-24); ARTERIAL BLOOD O2 SATURATION 93.8 % (94-98); ARTERIAL BLOOD PCO2 37.9 mmHg (35-45); ARTERIAL BLOOD PH 7.37 (7.35-7.45); ARTERIAL BLOOD PO2 70.4 mmHg (80-100); ARTERIAL BLOOD TOTAL CO2 22.5 mmol/L (23-27)
[2020-09-12] MEDS ORDERED: NORMAL SALINE 1000 ML 2,000 ML IV ONE (12:42)
[2020-09-12] MEDS: NORMAL SALINE 1000 ML 1,000 ML IV PRN (13:27)
[2020-09-12] MEDS ORDERED: VANCOMYCIN HCL 0 MG in DEXTROSE 5%-WATER 250 ML IV NR (14:30)
[2020-09-12] MEDS: MORPHINE SULFATE 10 MG/ML INJ IV PRN ×2 (14:34→18:37)
--- NOTE | 2020-09-12 14:47 | Progress Note ---
Provider Note Provider Note: ID Consult Note- I was asked to review this patient's chart and x-rays and to comment on his pneumonia and HIV. Patient has a history of untreated HIV. He has never been in care for his HIV. He presents to the hospital with acute respiratory symptoms and has consolidation of the right lung on CXR and CT scan. WBC is elevated (now 40,000 with left shift). He was started on prednisone at the time of admission. He is also receiving ceftriaxone, azithromycin, and Bactrim. I suspect that the patient has a pyogenic pneumonia (e.g., pneumococcus or possibly Staph aureus (MRSA or MSSA). He has a history of MRSA in the past. The CT scan and CXR are NOT suggestive of PJP. Patients with HIV are at a much higher risk for developing pneumococcal infections. Recommendations: 1. Continue ceftriaxone 1 gm IV daily. 2. Add vancomycin 1 gm IV q 12 hours. Check vancomycin trough. 3. Discontinue azithromycin, prednisone. 4. Reduce dose of Bactrim DS to one tab q day. 5. Induce sputum for culture. 6. Nares screen for MRSA. 7. Urinary Streptococcal pneumoniae antigen. Follow up of HIV can be done at our HIV clinic in [place]. Call [phone] to make appointment. He will not need insurance to be seen in our clinic. Please call for any questions. Donny Murray MD Pager: [phone]
--- NOTE | 2020-09-12 14:52 | RADIOLOGY REPORT (SQ) ---
EXAM DESCRIPTION: CT CHEST WITHOUT IMAGES COMPLETED DATE/TIME: 09/12/2020 1:14 pm REASON FOR STUDY: sepsis, cough abd pain, +HIV COMPARISON: Chest x-ray dated 09/11/2020 TECHNIQUE: CT scan performed of the chest without intravenous contrast. Images reviewed with lung, soft tissue and bone windows. Reconstructed coronal and sagittal MPR images reviewed. All images st ored on PACS. All CT scanners at this facility use dose modulation, iterative reconstruction, and/or weight based d osing when appropriate to reduce radiation dose to as low as reasonably achievable (ALARA). [facility]: Dose Right [facility]: CareDose [facility]: Dose Right [facility]: Teradose 4D [facility]: [employer] RADIATION DOSE: CT Rad equipment meets quality standard of care and radiation dose reduction techniq ues were employed. CTDIvol: 14.0 - 18.8 mGy. DLP: 1593 mGy-cm. mGy. LIMITATIONS: Patient motion. FINDINGS: LUNGS AND PLEURA: Dense consolidation in the right upper lobe, left base and superior segm ent of the right lower lobe consistent with pneumonia. No effusions. HILAR AND MEDIASTINAL STRUCTURES: Difficult to evaluate due to lack of IV contrast. HEART AND VASCULAR STRUCTURES: No aneurysm. No pericardial effusion. UPPER ABDOMEN: No significant findings. Limited exam. THYROID AND OTHER SOFT TISSUES: No masses. No adenopathy. BONES: No significant finding. HARDWARE: None in the chest. OTHER: No other significant findings. IMPRESSION: Dense infiltrate in the right upper lobe left base and superior segment of the right low er lobe consistent with multifocal pneumonia. No effusions. TECHNICAL DOCUMENTATION: JOB ID: [id number] Quality ID # [id number]: Final reports with documentation of one or more dose reduction techniques (e.g., Au tomated exposure control, adjustment of the mA and/or kV according to patient size, use of iterative reconstruction technique) 2010 [employer]- All Rights Reserved Reading location - IP/workstation name: [email or web address]
--- NOTE | 2020-09-12 14:56 | RADIOLOGY REPORT (SQ) ---
EXAM DESCRIPTION: CT ABD/PELVIS NO ORAL OR IV IMAGES COMPLETED DATE/TIME: 09/12/2020 1:14 pm REASON FOR STUDY: sepsis, cough abd pain, +HIV COMPARISON: None. TECHNIQUE: CT scan of the abdomen and pelvis performed without intravenous or oral contrast. Images reviewed with lung, soft tissue, and bone windows. Reconstructed coronal and sagittal MPR images revi ewed. All images stored on PACS. All CT scanners at this facility use dose modulation, iterative reconstruction, and/or weight based d osing when appropriate to reduce radiation dose to as low as reasonably achievable (ALARA). [facility]: Dose Right [facility]: CareDose [facility]: Dose Right [facility]: Teradose 4D [facility]: [employer] RADIATION DOSE: mGy. LIMITATIONS: Study is limb of lack of oral IV contrast. Study is also limited by patient motion. E xtensive beam hardening fact. Patient's arms we are overlying his abdomen. FINDINGS: LOWER CHEST: No significant findings. No nodules or infiltrates. NON-CONTRASTED LIVER, SPLEEN, ADRENALS: Evaluation limited by lack of IV contrast. No identified sign ificant masses. PANCREAS: No masses. No peripancreatic inflammatory changes. GALLBLADDER: Questionable gallbladder sludge versus large stone. RIGHT KIDNEY AND URETER: No suspicious masses. Assessment limited by lack of IV contrast. No signif icant calcifications. No hydronephrosis or hydroureter. LEFT KIDNEY AND URETER: No suspicious masses. Assessment limited by lack of IV contrast. No signifi cant calcifications. No hydronephrosis or hydroureter. AORTA AND RETROPERITONEUM: No aneurysm. No retroperitoneal masses or adenopathy. BOWEL AND PERITONEAL CAVITY: No obvious masses or inflammatory changes. No free fluid. APPENDIX: Not visualized. PELVIS, BLADDER, AND ABDOMINAL WALL:Distended bladder. BONES: No significant findings. OTHER: No other significant finding. IMPRESSION: Essentially nondiagnostic study secondary to patient motion and lack of oral non IV cont rast. Extensive beam hardening fact from the patient's arms. Underlying infectious or inflammatory process cannot be excluded based on this study. COMMENT: Quality ID # [id number]: Final reports with documentation of one or more dose reduction techniques (e.g., Automated exposure control, adjustment of the mA and/or kV according to patient size, use of iterative reconstruction technique) TECHNICAL DOCUMENTATION: JOB ID: [id number] 2010 [employer]- All Rights Reserved Reading location - IP/workstation name: [email or web address]
[2020-09-12 16:52] LABS: APPEARANCE,URINE CLEAR; BILIRUBIN,URINE NEGATIVE (NEGATIVE); COLOR,URINE YELLOW; GLUCOSE, URINE NEGATIVE (NEGATIVE); KETONES,URINE NEGATIVE (NEGATIVE); PROTEIN,URINE NEGATIVE (NEGATIVE); URINE SPECIFIC GRAVITY 1.003
--- NOTE | 2020-09-12 18:45 | Progress Note ---
Provider Note Provider Note: 25 year old male with a history of HIV infection (unknown CD4 count or viral load) who presented with sepsis due to pneumonia. He was examined today and found to be hypotensive, tachycardic, tachypnic, with dry hacking cough. Patient was diaphoretic, somnolent. Lungs with rhales throughout right lung porter and left lung base. Abdominal exam benign. Antibiotics were adjusted and he received 5L IVF bolus + increased continuous IVF rate. A-a gradient elevated but less than 35 and low concern for PJP at this time. Lactates x3 ordered as per sepsis protocol. Discussed case with ID and nursing staff. He is improving with IVF. Lactic acidosis being monitored closely. BCx pending. >30 minutes of critical care time spent in the care of patient
[2020-09-12] MEDS: VANCOMYCIN HCL 750 MG in DEXTROSE 5%-WATER 250 ML IV SCH (19:46)
[2020-09-12] MEDS ORDERED: AZITHROMYCIN 500 MG in DEXTROSE 5%-WATER 250 ML IV SCH (22:00)
[2020-09-12] MEDS ORDERED: CEFTRIAXONE 1 GM/D5W RTU 1 GM/50 ML RTUPB IV SCH (22:00)
[2020-09-12] MEDS: LORAZEPAM INJ 2 MG/1 ML VIAL IV PRN (22:01)
[2020-09-13] MEDS: VANCOMYCIN HCL 750 MG in DEXTROSE 5%-WATER 250 ML IV SCH (02:00)
[2020-09-13] MEDS: MORPHINE SULFATE 10 MG/ML INJ IV PRN ×2 (02:44→11:28)
[2020-09-13] MEDS: HEPARIN SOD (PORCINE) 5,000 UNIT/ML 1 ML VIAL SUBCUT SCH ×3 (05:13→21:02)
[2020-09-13] MEDS: NORMAL SALINE 1000 ML 1,000 ML IV PRN ×2 (05:39→11:28)
[2020-09-13 06:00] LABS: HEMATOCRIT 32.2 % (37.9-51.0); HEMOGLOBIN 10.9 g/dL (13.5-17.0); MEAN CORPUSCULAR HGB CONC 33.7 g/dL (32.0-36.0); MEAN CORPUSCULAR VOLUME 83 fl (80-97); PLATELET COUNT 277 10^3/uL (150-450); RED BLOOD COUNT 3.88 10^6/uL (4.35-5.55); RED CELL DISTRIBUTION WIDTH 14.8 % (11.5-14.0)
[2020-09-13 06:18] LABS: ANION GAP 12 (5-19); BLOOD UREA NITROGEN 26 mg/dL (7-20); CALCIUM 7.7 mg/dL (8.4-10.2); CARBON DIOXIDE 20 mmol/L (22-30); CHLORIDE 108 mmol/L (98-107); GLUCOSE 121 mg/dL (75-110); POTASSIUM 4.7 mmol/L (3.6-5.0)
--- NOTE | 2020-09-13 06:30 | PSYCHOLOGICAL NOTE ---
Psych Note - Psych Note Date seen by psych provider: 09/12/20 Time seen by psych provider: 19:40 Psych Note: Reason for Consult: Depression Star reports depression but never asking for medication because he had friends on medication and saw them "zombie like." He disclosed he was "scared" to take any medications; he denies wanting to or haing thoughts of self harm. He reports he would like assistance with medication now because he feels he has had an increase in symptoms. Evalation was brief due to patient's medical status. Patient is observed to be in distress laying on his side, rocking slightly with intermitted thrashing. He stating he "feels like I'm burning up...please help...just make it stop" Patient has difficulty focusing and articulating his thoughts do to his discomfort. Clinician was able to obtain an ice pack for the patient and it was noted the patient immediately calmed after he placed it to his forehead. He thanked clinician and quickly started to fall asleep. Medication recommendations per [facility]'s contract psychiatrist are as follows Celexa 20mg daily Impression/plan:Patient is cleared from acute psychiatrist services. Evaluation was brief due to patient's distress. Patient reports increase in depression and discloses willingness to take medications. Medications recommendations have been provided. It is noted there is concern the patient may be noncompliant with medications due to his historic noncompliance with medication management for medical. Please contact the behavioral health team if new concerns arise; thank you for this consult. Dr. Christy was consulted on the care and management of this patient.
[2020-09-13 06:37] LABS: ABSOLUTE LYMPHOCYTES# (MANUAL) 0.7 10^3/uL (0.5-4.7); ABSOLUTE MONOCYTES # (MANUAL) 1.4 10^3/uL (0.1-1.4); ANISOCYTOSIS SLIGHT; BASOPHILS % (MANUAL) 0 % (0-2); EOSINOPHILS % (MANUAL) 0 % (0-6); LYMPHOCYTES % (MANUAL) 2 % (13-45); MONOCYTES % (MANUAL) 4 % (3-13); PLATELET COMMENT ADEQUATE; SEGMENTED NEUTROPHILS % (MAN) 94 % (42-78); TOTAL CELLS COUNTED 100; TOXIC GRANULATION 1+
[2020-09-13 06:43] LABS: WHITE BLOOD COUNT 36.1 10^3/uL (4.0-10.5)
[2020-09-13] MEDS: LORAZEPAM INJ 2 MG/1 ML VIAL IV PRN (08:48)
--- NOTE | 2020-09-13 09:44 | EKG REPORT ---
SEVERITY:- ABNORMAL ECG - SINUS TACHYCARDIA NONSPECIFIC T ABNORMALITIES, ANTERIOR LEADS : Confirmed by: Sukhwinder Guerrero MD 13-Sep-2020 09:43:48
[2020-09-13] MEDS: CEFTRIAXONE 2 GM/D5W RTU 2 GM/50 ML RTUPB IV SCH (09:55)
[2020-09-13] MEDS: FAMOTIDINE 20 MG TABLET PO SCH ×2 (09:55→23:44)
[2020-09-13] MEDS: GUAIFENESIN 600 MG TABLET.SA PO SCH ×2 (09:55→23:43)
[2020-09-13] MEDS: CITALOPRAM HYDROBROMIDE 20 MG TABLET PO SCH ×2 (11:28→11:59)
--- NOTE | 2020-09-13 12:52 | Progress Note ---
Provider Note Provider Note: ID Follow Up- Blood cultures growing pneumococcus (Strep pneumoniae). Patient is clinically improved. Recommend continuing ceftriaxone. Dose can be reduced to 1 gm IV daily. Once susceptibilities are known, he can be transitioned to oral antibiotics (amoxicillin, if susceptible to penicillin) and sent home. Recommend 7 days of antibiotics. We will be glad to see the patient in our HIV clinic for follow up. Please contact me if there are questions. Donny Murray MD Pager: [phone]
[2020-09-13] MEDS ORDERED: MORPHINE SULFATE 10 MG/ML INJ IV ONE (13:00)
[2020-09-13 13:28] LABS: PATH REVIEW PATHOLOGIST REVIEWED
[2020-09-13] MEDS: ACETAMINOPHEN 325 MG TABLET PO PRN (14:30)
[2020-09-13] MEDS ORDERED: MORPHINE SULFATE IR 15 MG TABLET PO PRN (14:54)
[2020-09-13] MEDS ORDERED: MORPHINE SULFATE SR 15 MG TABLET PO SCH (15:00)
[2020-09-13] MEDS: MORPHINE SULFATE IR 15 MG TABLET PO PRN ×2 (15:49→23:48)
[2020-09-13] MEDS: ACETAMINOPHEN 325 MG TABLET PO SCH (17:20)
--- NOTE | 2020-09-13 18:47 | PDOC PROGRESS REPORT ---
Subjective Progress Note for:: 09/13/20 Subjective:: Patient is resting in bed. He awakens easily when I say his name. Patient tells me that he is tired and would like to sleep and asked to come back later. I returned to the room on multiple occasions to find the patient sleeping in bed. Every time I asked attempted to wake the patient and asked if he had any complaints or concerns. His only complaint to me was that his left flank into left rib cage and extending into his back hurt. He then fell back asleep and did not respond to my further questions. Discussed case with patient with patient's nurse she tells me that several occasions the patient has woken from sleep agitated and shouting that he does not know why he is here, that he feels alone and that he is in pain. The nurse reports that herself and Dr. Mejia have both spent time in patient's room discussing patient's case with him. No further concerns. Reason For Visit: BILATERAL MULTIFOCAL PNEUMONIA,ACUTE KIDNEY INJURY Physical Exam Vital Signs: Temp Pulse Resp BP Pulse Ox 97.4 F 99 18 123/81 99 09/13/20 15:44 09/13/20 15:44 09/13/20 15:44 09/13/20 15:44 09/13/20 15:44 Intake & Output 09/12/20 09/13/20 09/14/20 06:59 06:59 06:59 Intake Total 1050 8410 1979 Balance 1050 8410 1979 Weight 59.874 kg 72.9 kg General appearance: PRESENT: other - Patient is sleeping during exam. He appears ill and thin. He appears to be comfortable while resting with his mouth open. He is able to tell me that he is in pain but does not provide answers to further questions. Head exam: PRESENT: atraumatic, normocephalic Mouth exam: PRESENT: moist, tongue midline Neck exam: PRESENT: full ROM Respiratory exam: PRESENT: clear to auscultation cyrus, crackles - Nurse crackles bilaterally., unlabored Results Laboratory Results: 09/13/20 04:59 09/13/20 04:59 09/12/20 09/13/20 09/13/20 22:45 01:37 04:59 WBC RBC Hgb Hct MCV MCH MCHC RDW Plt Count Seg Neutrophils % Sodium Potassium Chloride Carbon Dioxide Anion Gap BUN Creatinine Est GFR ( Amer) Glucose Lactic Acid 2.1 1.9 1.8 Calcium 09/13/20 09/13/20 04:59 04:59 WBC 36.1 H* RBC 3.88 L Hgb 10.9 L Hct 32.2 L MCV 83 MCH 28.0 MCHC 33.7 RDW 14.8 H Plt Count 277 Seg Neutrophils % Not Reportable Sodium 140.4 Potassium 4.7 Chloride 108 H Carbon Dioxide 20 L Anion Gap 12 BUN 26 H Creatinine 1.07 Est GFR ( Amer) > 60 Glucose 121 H Lactic Acid Calcium 7.7 L 09/12/20 01:41 Blood Blood Culture (PCR) - Final Streptococcus Pneumoniae 09/11/20 09/11/20 09/12/20 23:19 23:19 01:41 Creatine Kinase 59 Troponin I Cancelled < 0.012 09/12/20 08:25 Creatine Kinase Troponin I < 0.012 Impressions: Chest X-Ray 09/11/20 21:12 IMPRESSION: Bilateral airspace disease consistent with bilateral pneumonia. Abdomen/Pelvis CT 09/12/20 00:00 IMPRESSION: Essentially nondiagnostic study secondary to patient motion and lack of oral non IV contrast. Extensive beam hardening fact from the patient's arms. Underlying infectious or inflammatory process cannot be excluded based on this study. Chest CT 09/12/20 00:00 IMPRESSION: Dense infiltrate in the right upper lobe left base and superior segment of the right lower lobe consistent with multifocal pneumonia. No effusions. Assessment and Plan - Diagnosis (1) Sepsis Qualifiers: Sepsis type: sepsis due to unspecified organism Sepsis acute organ dysfunction status: unspecified Qualified Code(s): A41.9 - Sepsis, unspecified organism Is this a current diagnosis for this admission?: Yes Plan: On initial presentation mets sepsis criteria SIRS: 3/4, qSOFA: 2/3 +BC pneumococcus (Strep pneumoniae) x2 WBC 40 -> 36.1 lactic acid 2.9 -> 1.8 ID consulted, appreciate recommendations, case discussed, not reviewed. - Continue Ceftriaxone 1gm IV daily - Transition to oral abx (amoxicillin if susceptible to penicillin) - Total of 7 days of antibiotics - F/u at HIV clinic (2) Gram-positive cocci bacteremia Is this a current diagnosis for this admission?: Yes Plan: +BC strep pneumoniae x2 Cause of sepsis Repeat blood cultures pending ID consulted, appreciate recommendations, case discussed, not reviewed. - Continue Ceftriaxone 1gm IV daily - Transition to oral abx (amoxicillin if susceptible to penicillin) - Total of 7 days of antibiotics - F/u at HIV clinic (3) Acute kidney injury Is this a current diagnosis for this admission?: Yes Plan: BUN/creatinine on this presentation 41/1.6 -> 26/1.07 FeNa 0.7% indicating pre-renal cause Continue IV hydration Closely monitor renal indices Renally dose medications and avoid nephrotoxic's (4) Bilateral pneumonia Qualifiers: Pneumonia type: due to Pseudomonas Lung location: lower lobe of lung Qualified Code(s): J15.1 - Pneumonia due to Pseudomonas Is this a current diagnosis for this admission?: Yes Plan: Treatment as discussed above. Sputum culture pending. Urinary streptococcal pneumoniae antigen pending. (5) Bandemia Is this a current diagnosis for this admission?: Yes (6) Back pain Qualifiers: Back pain location: thoracic back pain Chronicity: acute Back pain laterality: right Qualified Code(s): M54.6 - Pain in thoracic spine Is this a current diagnosis for this admission?: Yes Plan: Pt c/o right sided flank/rib/back pain Initiate Morphine 7.5mg PO q8hr prn Tylenol 975 PO TID Consider imaging in future if no control over pain (7) HIV positive Is this a current diagnosis for this admission?: Yes Plan: Currently not following with any PCP or ID CD4 and viral load pending ID on board, as above F/u with outpatient HIV clinic, arrange f/u prior to discharge (8) Agitation Is this a current diagnosis for this admission?: Yes Plan: Per nursing reports pt with frequent agitation throughout day. Poor response to Ativan. Initiate Buspar 10mg daily. (9) Depression with anxiety Is this a current diagnosis for this admission?: Yes Plan: Reports depressed mood and excessive anxiety Psych consulted, discussed case, note reviewed Initiate Celexa as recommended - Time Time Spent with patient: 35 or more minutes Medications reviewed and adjusted accordingly: Yes Anticipated Discharge Disposition: Home, Self Care Anticipated Discharge Timeframe: undetermined
[2020-09-13] MEDS: BUSPIRONE HCL 10 MG TABLET PO SCH (23:44)
[2020-09-14] MEDS ORDERED: HYDROMORPHONE HCL INJ/PF 2 MG/ML AMPULE IV ONE (02:45)
[2020-09-14 04:57] LABS: HEMATOCRIT 30.8 % (37.9-51.0); HEMOGLOBIN 10.2 g/dL (13.5-17.0); MEAN CORPUSCULAR HEMOGLOBIN 27.6 pg (27.0-33.4); MEAN CORPUSCULAR HGB CONC 33.1 g/dL (32.0-36.0); MEAN CORPUSCULAR VOLUME 83 fl (80-97); PLATELET COUNT 330 10^3/uL (150-450); RED CELL DISTRIBUTION WIDTH 15.2 % (11.5-14.0)
[2020-09-14 05:10] LABS: ANION GAP 7 (5-19); BLOOD UREA NITROGEN 24 mg/dL (7-20); CALCIUM 8.1 mg/dL (8.4-10.2); CARBON DIOXIDE 22 mmol/L (22-30); CHLORIDE 109 mmol/L (98-107); GLUCOSE 94 mg/dL (75-110); POTASSIUM 4.7 mmol/L (3.6-5.0)
[2020-09-14] MEDS: HEPARIN SOD (PORCINE) 5,000 UNIT/ML 1 ML VIAL SUBCUT SCH ×3 (05:20→20:59)
[2020-09-14] MEDS: MORPHINE SULFATE IR 15 MG TABLET PO PRN ×3 (08:47→20:49)
[2020-09-14] MEDS: FAMOTIDINE 20 MG TABLET PO SCH ×2 (09:41→20:59)
[2020-09-14] MEDS: BUSPIRONE HCL 10 MG TABLET PO SCH ×2 (09:42→20:59)
[2020-09-14] MEDS: CITALOPRAM HYDROBROMIDE 20 MG TABLET PO SCH (09:42)
[2020-09-14] MEDS: GUAIFENESIN 600 MG TABLET.SA PO SCH ×2 (09:42→20:59)
[2020-09-14] MEDS: ACETAMINOPHEN 325 MG TABLET PO SCH ×3 (09:42→17:59)
[2020-09-14] MEDS: CEFTRIAXONE 2 GM/D5W RTU 2 GM/50 ML RTUPB IV SCH (09:42)
--- NOTE | 2020-09-14 16:03 | PDOC PROGRESS REPORT ---
Subjective Progress Note for:: 09/14/20 Subjective:: Patient resting in bed but awakes easily when I say his name and enters the room. He complains of pain across his lower back. This is consistent with his complaints yesterday about right flank/lower back pain. Today pain is bilateral. Described as sharp with increase in pain with movement, cough or deep inhalation. Denies trauma to back prior to onset. Denies loss of bowel/bladder control. Denies numbness/tingling/loss of sensation in lower extremities. Pain improved with pain medication and sleep. Cough remains persistent. Otherwise no further complaints or concerns. Discussed case with nurse, reports pt complaining of back pain. No further complaints or concerns. Reason For Visit: BILATERAL MULTIFOCAL PNEUMONIA,ACUTE KIDNEY INJURY Physical Exam Vital Signs: Temp Pulse Resp BP Pulse Ox 98.2 F 91 18 131/58 H 94 09/14/20 11:22 09/14/20 11:22 09/14/20 11:22 09/14/20 11:22 09/14/20 11:22 Intake & Output 09/13/20 09/14/20 09/15/20 06:59 06:59 06:59 Intake Total 8410 4260 675 Output Total 1800 Balance 8410 4260 -1125 Weight 72.9 kg 73.2 kg General appearance: PRESENT: cooperative, mild distress Head exam: PRESENT: atraumatic, normocephalic Eye exam: PRESENT: EOMI, scleral icterus Mouth exam: PRESENT: dry mucosa, tongue midline Neck exam: PRESENT: full ROM. ABSENT: JVD, tenderness Respiratory exam: PRESENT: clear to auscultation cyrus, crackles - coarse bilatera lly, unlabored. ABSENT: tachypnea, wheezes Cardiovascular exam: PRESENT: RRR, +S1, +S2. ABSENT: diastolic murmur, systolic murmur, tachycardia Pulses: PRESENT: normal radial pulses GI/Abdominal exam: ABSENT: distended, firm, tenderness Extremities exam: PRESENT: full ROM - though limited lower extremity ROM due to pain in back. ABSENT: pedal edema, tenderness - Non-tender to palpation Musculoskeletal exam: PRESENT: other - Limited ROM bilateral lower extremities due to patient's fear of pain. He is able to lift Left and Right legs with resistance applied. Sensation intact bilateral lower extrmeities and upper extremities. Unable to palpate paraspinal muscles or spinus process due to pt's pain. Pt lying supine entire exam and refuses to move due to fear for increase in pain. No redness or warmth appreciated bilateral hips anteriorally. Neurological exam: PRESENT: alert, awake, oriented to person, oriented to place, oriented to time, oriented to situation Psychiatric exam: PRESENT: anxious, depressed, other - Becomes teary on exam, stating he feels alone but appreciates everything the doctors and nurses have been doing for him Skin exam: PRESENT: dry, intact, warm, other - scattered tattoos on upper and lower extremities Results Laboratory Results: 09/14/20 04:35 09/14/20 04:35 09/14/20 09/14/20 04:35 04:35 WBC 24.0 H RBC 3.70 L Hgb 10.2 L Hct 30.8 L MCV 83 MCH 27.6 MCHC 33.1 RDW 15.2 H Plt Count 330 Sodium 138.2 Potassium 4.7 Chloride 109 H Carbon Dioxide 22 Anion Gap 7 BUN 24 H Creatinine 0.94 Est GFR ( Amer) > 60 Glucose 94 Calcium 8.1 L 09/11/20 09/11/20 09/12/20 23:19 23:19 01:41 Creatine Kinase 59 Troponin I Cancelled < 0.012 09/12/20 08:25 Creatine Kinase Troponin I < 0.012 Impressions: Chest X-Ray 09/11/20 21:12 IMPRESSION: Bilateral airspace disease consistent with bilateral pneumonia. Abdomen/Pelvis CT 09/12/20 00:00 IMPRESSION: Essentially nondiagnostic study secondary to patient motion and lack of oral non IV contrast. Extensive beam hardening fact from the patient's arms. Underlying infectious or inflammatory process cannot be excluded based on this study. Chest CT 09/12/20 00:00 IMPRESSION: Dense infiltrate in the right upper lobe left base and superior segment of the right lower lobe consistent with multifocal pneumonia. No effusions. Assessment and Plan - Diagnosis (1) Sepsis Qualifiers: Sepsis type: sepsis due to unspecified organism Sepsis acute organ dysfunction status: unspecified Qualified Code(s): A41.9 - Sepsis, unspecified organism Is this a current diagnosis for this admission?: Yes (2) Gram-positive cocci bacteremia Is this a current diagnosis for this admission?: Yes (3) Acute kidney injury Is this a current diagnosis for this admission?: Yes (4) Bilateral pneumonia Qualifiers: Pneumonia type: due to Pseudomonas Lung location: lower lobe of lung Qualified Code(s): J15.1 - Pneumonia due to Pseudomonas Is this a current diagnosis for this admission?: Yes (5) Bandemia Is this a current diagnosis for this admission?: Yes (6) Back pain Qualifiers: Back pain location: thoracic back pain Chronicity: acute Back pain laterality: right Qualified Code(s): M54.6 - Pain in thoracic spine Is this a current diagnosis for this admission?: Yes (7) HIV positive Is this a current diagnosis for this admission?: Yes (8) Agitation Is this a current diagnosis for this admission?: Yes (9) Depression with anxiety Is this a current diagnosis for this admission?: Yes - Plan Summary Summary: (1) Sepsis / Bandemia On initial presentation mets sepsis criteria SIRS: 3/4, qSOFA: 2/3 +BC pneumococcus (Strep pneumoniae) x2 MRSA swab pending WBC 40 -> 36.1 -> 24.0 lactic acid 2.9 -> 1.8 ID consulted, appreciate recommendations, case discussed, not reviewed. - Continue Ceftriaxone 1gm IV daily (Tx initiated 09/12/2020) - Transition to Amoxicillin pending sensitivity - Total of 7 days of antibiotics (End date 09/19/2020) - F/u at HIV clinic (2) Gram-positive cocci bacteremia +BC strep pneumoniae x2 Cause of sepsis Second set BC 09/12 negative. BC 09/14 pending. (3) Acute kidney injury: BUN/creatinine on this presentation 41/1.6 -> 26/1.07 - > 24/0.94 FeNa 0.7% indicating pre-renal cause. Continue IV hydration Closely monitor renal indices. Renally dose medications and avoid nephrotoxic's (4) Bilateral pneumonia:Treatment as discussed above. Sputum culture pending. Urinary streptococcal pneumoniae antigen pending. (6) Back pain: CT thoracic/lumbar pending. Initiate Morphine 7.5mg PO q4hr prn. Tylenol 975 PO TID (7) HIV positive CD4 and viral load pending. F/u with outpatient HIV clinic, arrange f/u prior to discharge (8) Agitation: Significantly improved. Continue Buspar 10mg daily. (9) Depression with anxiety: Continue Celexa PLAN: Cnt abx therapy until 09/19/2020. Pending spinal CT. Cnt IV hydration. Daily CBC, BMP. Pending CD4. Schedule f/u HIV outpatient clinic prior to dc. Cnt Buspar and Celexa. - Time Time Spent with patient: 25-34 minutes Smoking Cessation Education: 3 to 10 minutes Medications reviewed and adjusted accordingly: Yes Anticipated Discharge Disposition: Home, Self Care Anticipated Discharge Timeframe: >72 hours
--- NOTE | 2020-09-14 16:39 | RADIOLOGY REPORT (SQ) ---
EXAM DESCRIPTION: CT LUMBAR SPINE WITHOUT IMAGES COMPLETED DATE/TIME: 09/14/2020 4:19 pm REASON FOR STUDY: back pain COMPARISON: CT abdomen and pelvis 09/12/2020. TECHNIQUE: Axial images acquired through the lumbar spine without intravenous contrast. Images revi ewed with lung, soft tissue and bone windows. Reconstructed coronal and sagittal MPR images reviewed . All images stored on PACS. All CT scanners at this facility use dose modulation, iterative reconstruction, and/or weight based d osing when appropriate to reduce radiation dose to as low as reasonably achievable (ALARA). [facility]: Dose Right [facility]: CareDose [facility]: Dose Right [facility]: Teradose 4D [facility]: [employer] RADIATION DOSE: mGy. LIMITATIONS: None. FINDINGS: SEGMENTATION: There are 6 lumbar-type vertebral bodies. There is partial lumbarization of L6. ALIGNMENT: Normal. VERTEBRAL BODIES: No fractures. No dislocation. No acute findings. DISCS: The intervertebral disc spaces are preserved. PEDICLES, TRANSVERSE PROCESSES: No fractures. No dislocation. No acute findings. FACETS, POSTERIOR ELEMENTS: No fractures. No dislocation. HARDWARE: None in the spine. VISUALIZED RIBS: No fractures. SOFT TISSUES: There is diffuse edema within the paraspinal soft tissues. IMPRESSION: No acute fracture at the lumbar spine. Diffuse edema within the paraspinal soft tissues . TECHNICAL DOCUMENTATION: JOB ID: [id number] AR-64 Quality ID # [id number]: Final reports with documentation of one or more dose reduction techniques (e.g., Au tomated exposure control, adjustment of the mA and/or kV according to patient size, use of iterative reconstruction technique) 2010 [employer]- All Rights Reserved Reading location - IP/workstation name: [email or web address]
--- NOTE | 2020-09-14 17:02 | RADIOLOGY REPORT (SQ) ---
EXAM DESCRIPTION: CT THORACIC SPINE WITHOUT IMAGES COMPLETED DATE/TIME: 09/14/2020 4:19 pm REASON FOR STUDY: back pain COMPARISON: CT chest 09/12/2020 TECHNIQUE: Axial images acquired through the thoracic spine without intravenous contrast. Images re viewed with lung, soft tissue and bone windows. Reconstructed coronal and sagittal MPR images review ed. Images stored on PACS. All CT scanners at this facility use dose modulation, iterative reconstruction, and/or weight based d osing when appropriate to reduce radiation dose to as low as reasonably achievable (ALARA). [facility]: Dose Right [facility]: CareDose [facility]: Dose Right [facility]: Teradose 4D [facility]: [employer] RADIATION DOSE: CT Rad equipment meets quality standard of care and radiation dose reduction techniq ues were employed. CTDIvol: 18.3 mGy. DLP: 613 mGy-cm. mGy. LIMITATIONS: None. FINDINGS: VISUALIZED LUNGS: There are bilateral airspace opacities with consolidation at the visuali zed lungs. There are small bilateral pleural effusions. SOFT TISSUES: There is diffuse edema within the paraspinal soft tissues. VERTEBRAL BODIES: No fractures. No dislocation. No acute findings. DISCS: There is mild multilevel degenerative disc disease. ALIGNMENT: Normal. TRANSVERSE PROCESSES, POSTERIOR ELEMENTS: No fractures. No dislocation. No acute findings. HARDWARE: None in the spine. VISUALIZED RIBS: No fractures. IMPRESSION: 1. No acute fracture at the thoracic spine. Diffuse edema within the paraspinal soft ti ssues. 2. Bilateral airspace opacities with consolidation at the visualized lungs, suggestive of multifocal pneumonia. Small bilateral pleural effusions. TECHNICAL DOCUMENTATION: JOB ID: [id number] OR-64 Quality ID # [id number]: Final reports with documentation of one or more dose reduction techniques (e.g., Au tomated exposure control, adjustment of the mA and/or kV according to patient size, use of iterative reconstruction technique) 2010 [employer]- All Rights Reserved Reading location - IP/workstation name: [email or web address]
[2020-09-14 18:36] LABS: % CD 4 POS LYMPH 26.9 % (30.8-58.5); ABSOLUTE CD 4 HELPER 350 /uL (359-1519); ABSOLUTE CD 8 SUPPRESSOR 689 /uL (109-897); BANDS 3 % (Not Estab.); BASOPHILS (ABSOLUTE) 0.4 x10E3/uL (0.0-0.2); CD BASOPHILS 1 % (Not Estab.); CD EOSINOPHILS 0 % (Not Estab.); CD MONOCYTES 4 % (Not Estab.); CD4/CD8 RATIO 0.51 (0.92-3.72); HEMOGLOBIN 10.5 g/dL (13.0-17.7); IMMATURE CELLS Note (.); LYMPHS(ABSOLUTE) 1.3 x10E3/uL (0.7-3.1); MCHC 37.5 g/dL (31.5-35.7); MCV 78 fL (79-97); METAMYELOCYTES 1 % (0 - 0); PLATELETS 317 x10E3/uL (150-450); RBC 3.59 x10E6/uL (4.14-5.80); RDW 11.9 % (11.6-15.4); WBC 41.7 x10E3/uL (3.4-10.8)
[2020-09-15] MEDS: MORPHINE SULFATE IR 15 MG TABLET PO PRN ×2 (02:45→07:29)
[2020-09-15] MEDS: HEPARIN SOD (PORCINE) 5,000 UNIT/ML 1 ML VIAL SUBCUT SCH ×3 (05:01→21:59)
[2020-09-15 06:18] LABS: HEMATOCRIT 33.6 % (37.9-51.0); HEMOGLOBIN 11.5 g/dL (13.5-17.0); MEAN CORPUSCULAR HEMOGLOBIN 27.6 pg (27.0-33.4); MEAN CORPUSCULAR HGB CONC 34.1 g/dL (32.0-36.0); MEAN CORPUSCULAR VOLUME 81 fl (80-97); PLATELET COUNT 313 10^3/uL (150-450); RED BLOOD COUNT 4.16 10^6/uL (4.35-5.55); RED CELL DISTRIBUTION WIDTH 14.4 % (11.5-14.0); WHITE BLOOD COUNT 16.5 10^3/uL (4.0-10.5)
[2020-09-15 07:04] LABS: CD NEUTROPHILS 88 % (Not Estab.)
[2020-09-15 07:19] LABS: ABSOLUTE LYMPHOCYTES# (MANUAL) 2.3 10^3/uL (0.5-4.7); ABSOLUTE MONOCYTES # (MANUAL) 1.3 10^3/uL (0.1-1.4); ANISOCYTOSIS SLIGHT; BAND NEUTROPHILS % (MANUAL) 2 % (3-5); BASOPHILS % (MANUAL) 0 % (0-2); EOSINOPHILS % (MANUAL) 2 % (0-6); LYMPHOCYTES % (MANUAL) 13 % (13-45); METAMYELOCYTES % (MANUAL) 2 % (0-1); MONOCYTES % (MANUAL) 8 % (3-13); PLATELET COMMENT ADEQUATE; SEGMENTED NEUTROPHILS % (MAN) 72 % (42-78); TOTAL CELLS COUNTED 100
[2020-09-15 08:24] LABS: ANION GAP 8 (5-19); BLOOD UREA NITROGEN 17 mg/dL (7-20); CALCIUM 8.1 mg/dL (8.4-10.2); CARBON DIOXIDE 21 mmol/L (22-30); CHLORIDE 106 mmol/L (98-107); GLUCOSE 83 mg/dL (75-110); POTASSIUM 5.3 mmol/L (3.6-5.0)
[2020-09-15] MEDS: CEFTRIAXONE 2 GM/D5W RTU 2 GM/50 ML RTUPB IV SCH (09:51)
[2020-09-15] MEDS: CITALOPRAM HYDROBROMIDE 20 MG TABLET PO SCH (09:51)
[2020-09-15] MEDS: BUSPIRONE HCL 10 MG TABLET PO SCH ×2 (09:51→21:59)
[2020-09-15] MEDS: ACETAMINOPHEN 325 MG TABLET PO SCH ×3 (09:51→17:11)
[2020-09-15] MEDS: GUAIFENESIN 600 MG TABLET.SA PO SCH ×2 (09:51→21:59)
[2020-09-15] MEDS: FAMOTIDINE 20 MG TABLET PO SCH ×2 (09:51→21:59)
[2020-09-15] MEDS: KETOROLAC TROMETHAMINE INJ/PF 30 MG/1 ML SDV IV SCH ×3 (12:17→23:07)
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
[2020-09-15] MEDS: POLYETHYLENE GLYCOL 3350 POWDER 17 GM/1 PACKET PO SCH (13:49)
[2020-09-15] MEDS: SENNOSIDES/DOCUSATE 8.6-50 MG 1 EACH TABLET PO SCH (13:49)
[2020-09-15 13:51] LABS: HIV-1 RNA PCR QUANT 55000 copies/mL (.)
[2020-09-15] MEDS ORDERED: NORMAL SALINE 1000 ML 2,000 ML IV ONE (17:45)
[2020-09-16] MEDS: KETOROLAC TROMETHAMINE INJ/PF 30 MG/1 ML SDV IV SCH (05:43)
[2020-09-16] MEDS: HEPARIN SOD (PORCINE) 5,000 UNIT/ML 1 ML VIAL SUBCUT SCH (05:43)
[2020-09-16 06:35] LABS: HEMOGLOBIN 10.8 g/dL (13.5-17.0); MEAN CORPUSCULAR HEMOGLOBIN 27.7 pg (27.0-33.4); MEAN CORPUSCULAR HGB CONC 33.6 g/dL (32.0-36.0); MEAN CORPUSCULAR VOLUME 83 fl (80-97); PLATELET COUNT 316 10^3/uL (150-450); RED BLOOD COUNT 3.88 10^6/uL (4.35-5.55); RED CELL DISTRIBUTION WIDTH 14.5 % (11.5-14.0); WHITE BLOOD COUNT 11.1 10^3/uL (4.0-10.5)
[2020-09-16 07:00] LABS: ANION GAP 10 (5-19); BLOOD UREA NITROGEN 16 mg/dL (7-20); CALCIUM 7.9 mg/dL (8.4-10.2); CARBON DIOXIDE 20 mmol/L (22-30); CHLORIDE 107 mmol/L (98-107); GLUCOSE 86 mg/dL (75-110)
[2020-09-16 07:12] LABS: ABSOLUTE LYMPHOCYTES# (MANUAL) 1.1 10^3/uL (0.5-4.7); ABSOLUTE MONOCYTES # (MANUAL) 1.2 10^3/uL (0.1-1.4); BAND NEUTROPHILS % (MANUAL) 3 % (3-5); BASOPHILS % (MANUAL) 0 % (0-2); EOSINOPHILS % (MANUAL) 1 % (0-6); LYMPHOCYTES % (MANUAL) 9 % (13-45); METAMYELOCYTES % (MANUAL) 1 % (0-1); MONOCYTES % (MANUAL) 11 % (3-13); SEGMENTED NEUTROPHILS % (MAN) 74 % (42-78); TOTAL CELLS COUNTED 100
[2020-09-16 07:14] LABS: ANISOCYTOSIS SLIGHT; PLATELET COMMENT ADEQUATE; POLYCHROMASIA SLIGHT
[2020-09-16] MEDS ORDERED: CEFTRIAXONE 1 GM/D5W RTU 1 GM/50 ML RTUPB IV SCH (10:00)
[2020-09-16] MEDS: POLYETHYLENE GLYCOL 3350 POWDER 17 GM/1 PACKET PO SCH (10:08)
[2020-09-16] MEDS: ACETAMINOPHEN 325 MG TABLET PO SCH (10:29)
[2020-09-16] MEDS: FAMOTIDINE 20 MG TABLET PO SCH (10:29)
[2020-09-16] MEDS: GUAIFENESIN 600 MG TABLET.SA PO SCH (10:29)
[2020-09-16] MEDS: BUSPIRONE HCL 10 MG TABLET PO SCH (10:29)
[2020-09-16] MEDS: SENNOSIDES/DOCUSATE 8.6-50 MG 1 EACH TABLET PO SCH (10:29)
[2020-09-16 12:40] VITALS: BP 157/82
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
== END 2020-09-16 13:13 | disposition home or self-care (01) | DRG 871 ==
LOC: ER 19:42 → EH 09-12 02:30 → 3N 09-12 18:00 → 3S 09-13 10:33
PROVIDERS: ADMIT Student in an Organized Health Care Education/Training Program; ATTEND Physician Assistant
DX: A40.3 Sepsis due to Streptococcus pneumoniae (principal); J15.1 Pneumonia due to Pseudomonas; N17.9 Acute kidney failure, unspecified; Z20.828 Contact with and (suspected) exposure to other viral communicable diseases; Z21 Asymptomatic human immunodeficiency virus [HIV] infection status; R45.1 Restlessness and agitation; F41.8 Other specified anxiety disorders; K59.00 Constipation, unspecified; M54.6 Pain in thoracic spine; Z86.14 Personal history of Methicillin resistant Staphylococcus aureus infection; Z87.891 Personal history of nicotine dependence; Z79.899 Other long term (current) drug therapy; Z91.013 Allergy to seafood
CPT/HCPCS: 36415; 71045; 71250; 72128; 72131; 74176; 80048; 80053; 81001; 82550; 82570; 82803; 83605; 83615; 83735; 84300; 84484; 85025; 85027; 85610; 86360; 87040; 87070; 87077; 87150; 87186; 87536; 87635; 87804; 93005; 93010; 96361; 96365; 96368; 96375; 99285; C9803; J0456; J0696; J1170; J1885; J2060; J2270; J2405; J3370; J3490; J7030; J7060; J7512

== ENCOUNTER 2020-11-06 17:37 | Inpatient (IN) | payer SELFPAY ==
--- NOTE | 2020-11-06 18:02 | EKG REPORT ---
SEVERITY:- ABNORMAL ECG - SINUS TACHYCARDIA NONSPECIFIC T ABNORMALITIES, ANTERIOR LEADS : Confirmed by: Sukhwinder Guerrero MD 06-Nov-2020 18:02:09
[2020-11-06] MEDS ORDERED: ACETAMINOPHEN 325 MG TABLET PO ONE (18:19)
[2020-11-06] MEDS ORDERED: NORMAL SALINE 1000 ML 1,000 ML IV ONE ×3 (18:20→19:49)
--- NOTE | 2020-11-06 19:05 | RADIOLOGY REPORT (SQ) ---
EXAM DESCRIPTION: CHEST SINGLE VIEW IMAGES COMPLETED DATE/TIME: 11/06/2020 3:51 pm REASON FOR STUDY: fever, cough COMPARISON: 09/11/2020 EXAM PARAMETERS: NUMBER OF VIEWS: One view. TECHNIQUE: Single frontal radiographic view of the chest acquired. RADIATION DOSE: NA LIMITATIONS: External leads partially obscure underlying structures. FINDINGS: LUNGS AND PLEURA: Interval resolution of right upper lobe pneumonia. Progression in left lower lung consolidation and left pleural effusion since prior exam. No pneumothorax. MEDIASTINUM AND HILAR STRUCTURES: No masses. Contour normal. HEART AND VASCULAR STRUCTURES: Left heart border is partially obscured. No significant pulmonary vas cular congestion. BONES: No acute findings. HARDWARE: None in the chest. OTHER: No other significant finding. IMPRESSION: Interval resolution of right upper lobe pneumonia. Progressive left lower lung consolid ation and left pleural effusion. TECHNICAL DOCUMENTATION: JOB ID: [id number] 2010 [employer]- All Rights Reserved Reading location - IP/workstation name: [email or web address]
[2020-11-06 19:17] LABS: VENOUS BLOOD BASE EXCESS -1.4 mmol/L; VENOUS BLOOD HCO3 23.2 mmol/L (20-32); VENOUS BLOOD PCO2 38.7 mmHg (35-63); VENOUS BLOOD PH 7.4 (7.30-7.42)
[2020-11-06 19:20] LABS: HEMATOCRIT 32.5 % (37.9-51.0); HEMOGLOBIN 10.8 g/dL (13.5-17.0); MEAN CORPUSCULAR HGB CONC 33.3 g/dL (32.0-36.0); MEAN CORPUSCULAR VOLUME 84 fl (80-97); PLATELET COUNT 313 10^3/uL (150-450); RED BLOOD COUNT 3.86 10^6/uL (4.35-5.55); RED CELL DISTRIBUTION WIDTH 14.6 % (11.5-14.0)
[2020-11-06 19:23] LABS: INTERNATIONAL RATION (INR) 1.31; PROTHROMBIN TIME 16.5 SEC (11.4-15.4)
[2020-11-06 19:33] LABS: ALBUMIN 3.1 g/dL (3.5-5.0); ALKALINE PHOSPHATASE 119 U/L (38-126); ANION GAP 12 (5-19); ASPARTATE AMINO TRANSFERASE 68 U/L (17-59); BILIRUBIN,DIRECT 0.9 mg/dL (0.0-0.4); BILIRUBIN,TOTAL 1.5 mg/dL (0.2-1.3); BLOOD UREA NITROGEN 22 mg/dL (7-20); CALCIUM 8.2 mg/dL (8.4-10.2); CARBON DIOXIDE 26 mmol/L (22-30); CHLORIDE 92 mmol/L (98-107); GLUCOSE 119 mg/dL (75-110); POTASSIUM 4.3 mmol/L (3.6-5.0); TOTAL PROTEIN 7.2 g/dL (6.3-8.2)
[2020-11-06] MEDS ORDERED: CEFTRIAXONE 1 GM/D5W RTU 1 GM/50 ML RTUPB IV ONE (19:39)
[2020-11-06] MEDS ORDERED: SULFAMETHOX/TRIMETH 800-160 MG/10 ML VIAL IV ONE (19:39)
[2020-11-06] MEDS ORDERED: AZITHROMYCIN INJ 500 MG VIAL IV ONE ×2 (19:39→22:05)
[2020-11-06 19:42] LABS: WHITE BLOOD COUNT 33.5 10^3/uL (4.0-10.5)
[2020-11-06 19:45] LABS: ABSOLUTE LYMPHOCYTES# (MANUAL) 0.7 10^3/uL (0.5-4.7); BAND NEUTROPHILS % (MANUAL) 4 % (3-5); BASOPHILS % (MANUAL) 0 % (0-2); EOSINOPHILS % (MANUAL) 0 % (0-6); LYMPHOCYTES % (MANUAL) 2 % (13-45); MONOCYTES % (MANUAL) 9 % (3-13); SEGMENTED NEUTROPHILS % (MAN) 85 % (42-78); TOTAL CELLS COUNTED 100
[2020-11-06 19:46] LABS: ANISOCYTOSIS SLIGHT; PLATELET COMMENT ADEQUATE; TOXIC GRANULATION 1+; TOXIC VACUOLATION PRESENT
--- NOTE | 2020-11-06 19:49 | ER Document Report ---
ED General - General Chief Complaint: Abdominal Pain Stated Complaint: COUGH,ABDOMINAL PAIN,CHEST PAIN Time Seen by Provider: 11/06/20 18:20 TRAVEL OUTSIDE OF THE [place] IN LAST 30 DAYS: No - HPI Notes: Patient is a 25-year-old male who presents emergency department for evaluation of fever, cough, shortness of breath, vomiting, diarrhea. Symptoms of been present for the last 6 days. He had 2 episodes of emesis, nonbloody, nonbilious today. He had 3 episodes of watery diarrhea. No melena or hematochezia. He complains of pain in his chest and his abdomen. The pain is worsened by vomiting. Nothing seems to make it better. He states he felt chilled and likely febrile, but he has not taken any medications for his fever at home. He called EMS last night and was evaluated with a Covid test, he reports that it was negative. He denies any anosmia. - Related Data Allergies/Adverse Reactions: shrimp Allergy (Verified 09/12/20 08:57) Past Medical History - General Information source: Patient - Social History Smoking Status: Never Smoker Frequency of alcohol use: Rare Family History: Reviewed & Not Pertinent Pulmonary Medical History: Reports: Hx Asthma Renal/ Medical History: Denies: Hx Peritoneal Dialysis Skin Medical History: Reports Hx Cellulitis, Reports Hx MRSA Psychiatric Medical History: Reports: Hx Depression Infectious Medical History: Reports: Hx HIV, Hx MRSA Review of Systems - Review of Systems Constitutional: See HPI EENT: No symptoms reported Cardiovascular: See HPI Respiratory: See HPI Gastrointestinal: See HPI Genitourinary: No symptoms reported Musculoskeletal: No symptoms reported Skin: No symptoms reported Neurological/Psychological: No symptoms reported Physical Exam - Vital signs Vitals: Temp Resp BP Pulse Ox 101.2 F H 27 H 105/81 97 11/06/20 18:16 11/06/20 18:16 11/06/20 18:16 11/06/20 18:16 - Notes Notes: This is a pleasant 25-year-old male who appears his stated age in a mild amount of distress. He is intermittently tachypneic, warm to the touch. Vital signs reviewed, please refer to chart. Head is normocephalic, atraumatic. Pupils equal round, reactive to light. Neck is supple without meningismus. Heart is tachycardic with normal S1-S2. Lungs reveal diminished breath sounds in the left base. Abdomen is soft, nontender, normoactive bowel sounds throughout. Extremities without cyanosis, clubbing. Posterior calves are nontender. Peripheral pulses are equal. Skin is warm and dry. Patient is awake, alert, neurological exam is nonfocal. Course - Re-evaluation Re-evalutation: 11/06/20 19:52 Patient presents to the emergency department for evaluation. On arrival he was tachycardic and febrile, as well as tachypneic. He is oxygenating well. The patient failed to disclose his HIV status initially. This was discerned from prior laboratory investigations and review of old records. He is not currently treating this in any way. Laboratory investigation showed a marked leukocytosis. The patient is in fact septic. His chest x-ray shows a left lower lobe pneumonia. He is treated with Rocephin, Zithromax, Bactrim. He is given sepsis bolus fluids. I am awaiting a rapid Covid. Patient currently stable, will contact medicine for admission. 11/06/20 21:07 Dr. Cervantes will come down and evaluate the patient for possible admission. I went back and evaluated the patient. He is still mildly tachycardic. Multiple attempted and made it a second line, as the patient requires multiple IV antibiotics as well as IV fluids. Unfortunately he did not tolerate these attempts well, and is now refusing any further attempts at this time. I explained to him the need for IV fluids and the timely administration of antibiotics. He voiced understanding to this, states he will consider another line, may be in the morning." At this point as a result of the patient's refusal, second set of blood cultures will be canceled. 11/06/20 21:44 Covid results pending, but patient will likely be admitted to a general medical bed per Dr. Cervantes. - Vital Signs Vital signs: Temp Pulse Resp BP Pulse Ox 101.2 F H 33 H 110/64 98 11/06/20 18:16 11/06/20 19:01 11/06/20 19:01 11/06/20 19:01 - Laboratory Results Result Diagrams: 11/06/20 18:40 11/06/20 18:40 Laboratory Results Interpreted: 11/06/20 11/06/20 11/06/20 18:40 18:40 18:40 WBC 33.5 H* RBC 3.86 L Hgb 10.8 L Hct 32.5 L RDW 14.6 H Seg Neuts % (Manual) 85 H Lymphocytes % (Manual) 2 L Abs Neuts (Manual) 29.8 H Abs Monocytes (Manual) 3.0 H PT 16.5 H Sodium 129.7 L Chloride 92 L BUN 22 H Glucose 119 H POC Glucose Lactic Acid Calcium 8.2 L Total Bilirubin 1.5 H Direct Bilirubin 0.9 H AST 68 H ALT 53 H Albumin 3.1 L 11/06/20 11/06/20 18:40 19:00 WBC RBC Hgb Hct RDW Seg Neuts % (Manual) Lymphocytes % (Manual) Abs Neuts (Manual) Abs Monocytes (Manual) PT Sodium Chloride BUN Glucose POC Glucose 116 H Lactic Acid 4.0 H Calcium Total Bilirubin Direct Bilirubin AST ALT Albumin Critical Laboratory Results Reviewed: Yes Attending or Supervising Physician who Reviewed Labs: NOA ELIAS M - Radiology Results Radiology Results Interpreted: 11/06/20 21:09 Chest X-Ray 11/06/20 18:21 IMPRESSION: Interval resolution of right upper lobe pneumonia. Progressive left lower lung consolidation and left pleural effusion. Critical Radiology Results Reviewed: No Critical Results - EKG Interpretation by Me Additional EKG results interpreted by me: 11/06/20 21:29 Sinus tachycardia with a rate of 155 bpm. Normal axis and intervals. No acute ST changes concerning for ischemia or infarction. Critical Care Note - Critical Care Note Total time excluding time spent on procedures (mins): 20 Discharge - Discharge Clinical Impression: HIV positive Left lower lobe pneumonia Qualifiers: Pneumonia type: due to unspecified organism Qualified Code(s): J18.9 - Pneumonia, unspecified organism Sepsis Qualifiers: Sepsis type: sepsis due to unspecified organism Sepsis acute organ dysfunction status: without acute organ dysfunction Qualified Code(s): A41.9 - Sepsis, unspecified organism Condition: Stable Disposition: ADMITTED INPATIENT [id number] Admitted: Medical Floor
[2020-11-06] MEDS ORDERED: PROMETHAZINE HCL INJ 25 MG/1 ML VIAL IV PRN (21:51)
[2020-11-06] MEDS ORDERED: ACETAMINOPHEN 325 MG TABLET PO PRN (21:51)
[2020-11-06] MEDS ORDERED: VANCOMYCIN HCL 0 MG in DEXTROSE 5%-WATER 250 ML IV NR (22:15)
--- NOTE | 2020-11-06 22:31 | PDOC H&P ---
History of Present Illness Admission Date/PCP: 11/06/20 21:49 Patient complains of: Cough, shortness of breath History of Present Illness: ALEXEI MAY is a 25 year old male with a history of HIV infection, anxiety and depression who was recently treated for bilateral pneumonia about a month and half ago now presents with a 5 days duration of cough productive of blood-streaked sputum with associated left-sided pleuritic chest pain which she rates as 10/10 intensity, sharp, aggravated by coughing and deep breathing. Patient also states that he has been feeling short of breath with exertion. He also endorses nausea, vomiting of ingested matter with associated watery diarrhea of the same duration. He also has been having fever and chills. He states that last night he had called EMS and was tested for COVID-19 and was told that it was negative. He denies any history of IV drug use. He also denies any orthopnea, PND, dizziness, leg swelling. 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, Methicillin-Resistant Staph Aureus Social History Information Source: Patient Lives with: Family Smoking Status: Never Smoker Hx Recreational Drug Use: Yes - Marijuana Drugs: Marijuana Hx Prescription Drug Abuse: No - Advance Directive Resuscitation Status: Full Code Family History Family History: Reviewed & Not Pertinent Parental Family History Reviewed: Yes Children Family History Reviewed: Yes Sibling(s) Family History Reviewed.: Yes Medication/Allergy Home Medications: Amoxicillin 1 tab PO BID 3 Days #6 tab 09/16/20 Buspirone HCl [Buspar 10 mg Tablet] 10 mg PO Q12 #30 tablet 09/16/20 Allergies/Adverse Reactions: shrimp Allergy (Verified 09/12/20 08:57) Review of Systems Constitutional: PRESENT: as per HPI Eyes: ABSENT: visual disturbances Ears: ABSENT: hearing changes Nose, Mouth, and Throat: ABSENT: headache(s), mouth pain, sore throat Cardiovascular: PRESENT: as per HPI. ABSENT: edema, orthropnea, palpitations Respiratory: PRESENT: as per HPI Gastrointestinal: PRESENT: as per HPI Genitourinary: ABSENT: dysuria, hematuria Musculoskeletal: ABSENT: joint swelling Integumentary: ABSENT: rash, wounds Neurological: ABSENT: abnormal gait, abnormal speech, confusion, dizziness, focal weakness, syncope Psychiatric: ABSENT: anxiety, depression, homidical ideation, suicidal ideation Endocrine: ABSENT: cold intolerance, heat intolerance, polydipsia, polyuria Hematologic/Lymphatic: ABSENT: easy bleeding, easy bruising Physical Exam Vital Signs: Temp Pulse Resp BP Pulse Ox 101.2 F H 33 H 110/64 98 11/06/20 18:16 11/06/20 19:01 11/06/20 19:01 11/06/20 19:01 Intake & Output 11/05/20 11/06/20 11/07/20 06:59 06:59 06:59 Intake Total 1050 Balance 1050 Weight 69 kg Additional comments: GENERAL APPEARANCE: Alert and oriented x3, in no acute distress HEENT: Normocephalic and atraumatic. No scleral icterus. Moist oral mucosa NECK: Supple. No lymphadenopathy or tenderness. No carotid bruit. No JVD CHEST: Symmetric. Nontender to palpation. LUNGS: Has dullness to percussion and decreased air entry on the left lower lung field HEART: Regular rate and rhythm with normal S1 and S2. No murmurs, gallops, or rubs. ABDOMEN: Flat, soft, active bowel sounds, no direct or rebound tenderness. No organomegaly detected. EXTREMITIES: No cyanosis, clubbing, or edema. MUSCULOSKELETAL: No deformity, atrophy or swelling noted PSYCHIATRIC: Recent and remote memory is intact. Appropriate mood and affect. SKIN: Warm, dry, and well perfused. No lesions or rashes are noted. NEUROLOGIC: No focal sensory or motor deficits are noted. Results Laboratory Results: 11/06/20 18:40 11/06/20 18:40 11/06/20 11/06/20 11/06/20 18:40 18:40 18:40 WBC 33.5 H* RBC 3.86 L Hgb 10.8 L Hct 32.5 L MCV 84 MCH 28.0 MCHC 33.3 RDW 14.6 H Plt Count 313 Seg Neutrophils % Not Reportable VBG pH 7.40 VBG pCO2 38.7 VBG HCO3 23.2 VBG Base Excess -1.4 Sodium 129.7 L Potassium 4.3 Chloride 92 L Carbon Dioxide 26 Anion Gap 12 BUN 22 H Creatinine 1.04 Est GFR ( Amer) > 60 Glucose 119 H Lactic Acid Calcium 8.2 L Total Bilirubin 1.5 H AST 68 H Alkaline Phosphatase 119 Total Protein 7.2 Albumin 3.1 L 11/06/20 18:40 WBC RBC Hgb Hct MCV MCH MCHC RDW Plt Count Seg Neutrophils % VBG pH VBG pCO2 VBG HCO3 VBG Base Excess Sodium Potassium Chloride Carbon Dioxide Anion Gap BUN Creatinine Est GFR ( Amer) Glucose Lactic Acid 4.0 H Calcium Total Bilirubin AST Alkaline Phosphatase Total Protein Albumin Impressions: Chest X-Ray 11/06/20 18:21 IMPRESSION: Interval resolution of right upper lobe pneumonia. Progressive left lower lung consolidation and left pleural effusion. Assessment and Plan - Diagnosis (1) Sepsis Qualifiers: Sepsis type: sepsis due to unspecified organism Sepsis acute organ dysfunction status: without acute organ dysfunction Qualified Code(s): A41.9 - Sepsis, unspecified organism Is this a current diagnosis for this admission?: Yes Plan: Patient presents with fever, cough productive of blood-streaked sputum Patient is HIV positive with most recent CD4 count being 350 about 2 months back Meets sepsis criteria per SIRS: 3/4 Lactic acid level was elevated at 4.0 Leukocytosis with a WBC count of 33.5k with left shift Likely source of infection, left lower lobe pneumonia Chest x-ray shows a progressive left lower lobe consolidation with effusion Patient was hydrated at the ED per sepsis protocol and was given ceftriaxone and azithromycin Patient has MRSA risk factors including recent hospitalization and being treated with same antibiotic stated above Switched his antibiotic to vancomycin and Levaquin Continue IV hydration and closely monitor vital signs Follow-up with blood culture and de-escalate antibiotics accordingly (2) Left lower lobe pneumonia Qualifiers: Pneumonia type: due to unspecified organism Qualified Code(s): J18.9 - Pneumonia, unspecified organism Is this a current diagnosis for this admission?: Yes Plan: Presents with cough, chest pain and shortness of breath Chest x-ray significant for left lower lobe pneumonia with effusion Will consider ultrasound-guided thoracentesis in the a.m. Patient also has GI symptoms with associated hyponatremia concerning for possible Legionella Patient's most recent CD4 count was 350 two months back and current presentation unlikely to be due to PCP Continue vancomycin and Levaquin for now Will get urine Legionella antigen De-escalate antibiotic according to blood culture and sensitivity result (3) Hyponatremia Is this a current diagnosis for this admission?: Yes Plan: Likely due to volume depletion from vomiting and diarrhea Currently patient is being hydrated Closely monitor serum electrolytes to avoid overcorrection (4) HIV positive Is this a current diagnosis for this admission?: Yes Plan: Patient has not established follow-up with outpatient HIV/ID clinic and c urrently not on HAART CD4 count on his last admission was 350 Currently being treated for community-acquired pneumonia Consider referral to outpatient clinic on discharge for initiation of ART (5) Anxiety and depression Is this a current diagnosis for this admission?: Yes Plan: Continue buspirone - Time Time Spent with patient: 35 or more minutes Total Critical Time (Minutes): 50 Medications reviewed and adjusted accordingly: Yes Anticipated Discharge Disposition: Home, Self Care Anticipated Discharge Timeframe: within 72 hours - Inpatient Certification Based on my medical assessment, after consideration of the patient's comorbidities, presenting symptoms, or acuity I expect that the services needed warrant INPATIENT care.: Yes I certify that my determination is in accordance with my understanding of Medicare's requirements for reasonable and necessary INPATIENT services [42 CFR 412.3e].: Yes Medical Necessity: Significant Comorbidiites Make Outpatient Treatment Too Risky, Need Close Monitoring Due to Risk of Patient Decompensation, Need For IV Fluids, Need for IV Antibiotics, Risk of Complication if Not Cared For in Hospital Post Hospital Care: D/C or Transfer Summary
[2020-11-06] MEDS: FAMOTIDINE 20 MG TABLET PO SCH (23:22)
[2020-11-07] MEDS ORDERED: BUSPIRONE HCL 10 MG TABLET PO ONE (02:00)
[2020-11-07] MEDS: OXYCODONE-ACETAMINOPHEN 5-325 MG TABLET PO PRN ×2 (02:08→20:46)
[2020-11-07] MEDS ORDERED: VANCOMYCIN HCL INJ 1000 MG VIAL IV PRN (02:18)
[2020-11-07] MEDS ORDERED: VANCOMYCIN HCL 1,000 MG in DEXTROSE 5%-WATER 250 ML IV ONE (02:30)
[2020-11-07] MEDS: RINGERS SOLUTION,LACTATED 1,000 ML IV PRN ×2 (04:06→22:07)
[2020-11-07] MEDS ORDERED: LEVOFLOXACIN 750 MG/D5W RTU 750 MG/150 ML RTUPB IV SCH (06:00)
[2020-11-07] MEDS: FAMOTIDINE 20 MG TABLET PO SCH ×2 (10:11→22:06)
[2020-11-07] MEDS: BUSPIRONE HCL 10 MG TABLET PO SCH ×2 (10:12→22:06)
[2020-11-07] MEDS: ENOXAPARIN SODIUM INJ 40 MG/0.4 ML DISP.SYRIN SUBCUT SCH (10:12)
[2020-11-07] MEDS: VANCOMYCIN HCL 750 MG in DEXTROSE 5%-WATER 250 ML IV SCH ×2 (14:14→22:08)
--- NOTE | 2020-11-07 18:27 | PDOC PROGRESS REPORT ---
Subjective Subjective:: Per Previous Physician: "ALEXEI MAY is a 25 year old male with a history of HIV infection, anxiety and depression who was recently treated for bilateral pneumonia about a month and half ago now presents with a 5 days duration of cough productive of blood-streaked sputum with associated left-sided pleuritic chest pain which she rates as 10/10 intensity, sharp, aggravated by coughing and deep breathing. Patient also states that he has been feeling short of breath with exertion. He also endorses nausea, vomiting of ingested matter with associated watery diarrhea of the same duration. He also has been having fever and chills. He states that last night he had called EMS and was tested for COVID-19 and was told that it was negative. He denies any history of IV drug use. He also denies any orthopnea, PND, dizziness, leg swelling." 11/07/2020 During our encounter today, patient became tearful intermittently when speaking about his older brother, stating that his older brother is on drugs and is unr eliable in terms of getting the patient to his outpatient appointments. Patient recently missed his ID follow-up for HIV treatment. Given new findings on chest x-ray and recurrent pneumonia, I have ordered a chest CT with contrast to rule out empyema or cavitary process given patient is immunocompromised with untreated HIV. WBC very high at 33. I did direct calculation of the patient's CD4 count using his white blood cell count and lymphocyte percentage and it seems the patient is highly likely to have a CD4 count less than 200 which puts him at great risk for developing a number of opportunistic infections related to HIV/AIDS. I will confirm this with CD4 count blood test. I will treat empirically for PCP pneumonia with Bactrim IV weight-based divided in 3 doses. I ordered an ID consult as well. Cryptococcal serum antigen test has been ordered. We will also get a fungal smear and culture of his sputum. Currently, if he has pneumocystis pneumonia, he does not qualify for adjunct glucocorticoid therapy given he has an oxygen saturation of greater than 92% on room air. Reason For Visit: HIV POSITIVE Physical Exam Vital Signs: Temp Pulse Resp BP Pulse Ox 97.9 F 101 H 17 140/61 H 96 11/07/20 15:28 11/07/20 15:28 11/07/20 15:28 11/07/20 15:28 11/07/20 15:28 Intake & Output 11/06/20 11/07/20 11/08/20 06:59 06:59 06:59 Intake Total 3860 150 Output Total 780 Balance 3080 150 Weight 69.2 kg Exam: General appearance: PRESENT: no acute distress, well-developed, well-nourished, thin -Luxembourger male, tearful at times Head exam: PRESENT: atraumatic, normocephalic Eye exam: PRESENT: conjunctiva pink. ABSENT: scleral icterus Mouth exam: PRESENT: moist Respiratory exam: PRESENT: Bilateral rhonchi noted ABSENT: rales, wheezes Cardiovascular exam: PRESENT: RRR. ABSENT: diastolic murmur, rubs, systolic murmur GI/Abdominal exam: PRESENT: normal bowel sounds, soft. ABSENT: distended, guarding, mass, organolmegaly, rebound, tenderness Neurological exam: PRESENT: alert, awake, oriented to person, oriented to place, oriented to time, oriented to situation Psychiatric exam: PRESENT: appropriate affect, labile mood Skin exam: PRESENT: dry, intact, warm Results Laboratory Results: 11/06/20 18:40 11/06/20 18:40 11/06/20 11/06/20 11/06/20 18:40 18:40 18:40 WBC 33.5 H* RBC 3.86 L Hgb 10.8 L Hct 32.5 L MCV 84 MCH 28.0 MCHC 33.3 RDW 14.6 H Plt Count 313 Seg Neutrophils % Not Reportable VBG pH 7.40 VBG pCO2 38.7 VBG HCO3 23.2 VBG Base Excess -1.4 Sodium 129.7 L Potassium 4.3 Chloride 92 L Carbon Dioxide 26 Anion Gap 12 BUN 22 H Creatinine 1.04 Est GFR ( Amer) > 60 Glucose 119 H Lactic Acid Calcium 8.2 L Total Bilirubin 1.5 H AST 68 H Alkaline Phosphatase 119 Total Protein 7.2 Albumin 3.1 L 11/06/20 18:40 WBC RBC Hgb Hct MCV MCH MCHC RDW Plt Count Seg Neutrophils % VBG pH VBG pCO2 VBG HCO3 VBG Base Excess Sodium Potassium Chloride Carbon Dioxide Anion Gap BUN Creatinine Est GFR ( Amer) Glucose Lactic Acid 4.0 H Calcium Total Bilirubin AST Alkaline Phosphatase Total Protein Albumin 11/06/20 18:40 Blood Blood Culture (PCR) - Final Streptococcus Pneumoniae Impressions: Chest X-Ray 11/06/20 18:21 IMPRESSION: Interval resolution of right upper lobe pneumonia. Progressive left lower lung consolidation and left pleural effusion. Assessment and Plan - Diagnosis (1) Pneumonia associated with acquired immune deficiency syndrome (AIDS) Is this a current diagnosis for this admission?: Yes Plan: HIV positive for approximately 1 year, not on any treatment, has missed follow- up appointment with ID after last admission Recurrent pneumonia, recent prior admission for this Calculated CD4 count highly likely less than 200 CD4/8 count ordered Must have follow-up with ID outpatient ID consult Possible pneumocystis pneumonia: Empiric treatment with Bactrim weight-based IV Possible cryptococcal pneumonia: Empiric treatment with fluconazole, serum cryptococcal antigen ordered, sputum fungal culture and smear Strep pneumonia a growing in blood cultures 2/2 CT chest with contrast Antibiotics: Vancomycin/Levaquin/Bactrim/fluconazole (2) Bacteremia due to Streptococcus pneumoniae Is this a current diagnosis for this admission?: Yes (3) Anxiety and depression Is this a current diagnosis for this admission?: Yes Plan: Continue buspirone Needs outpatient follow-up with psychiatry (4) Hyponatremia Is this a current diagnosis for this admission?: Yes Plan: Per Previous Physician: "Likely due to volume depletion from vomiting and diarrhea Currently patient is being hydrated Closely monitor serum electrolytes to avoid overcorrection" Trend BMP (5) Sepsis Qualifiers: Sepsis type: sepsis due to unspecified organism Sepsis acute organ dysfunction status: without acute organ dysfunction Qualified Code(s): A41.9 - Sepsis, unspecified organism Is this a current diagnosis for this admission?: Yes Plan: Per Previous Physician: "Patient presents with fever, cough productive of blood-streaked sputum Patient is HIV positive with most recent CD4 count being 350 about 2 months back Meets sepsis criteria per SIRS: 3/4 Lactic acid level was elevated at 4.0 Leukocytosis with a WBC count of 33.5k with left shift Likely source of infection, left lower lobe pneumonia Chest x-ray shows a progressive left lower lobe consolidation with effusion Patient was hydrated at the ED per sepsis protocol and was given ceftriaxone and azithromycin Patient has MRSA risk factors including recent hospitalization and being treated with same antibiotic stated above Switched his antibiotic to vancomycin and Levaquin Continue IV hydration and closely monitor vital signs Follow-up with blood culture and de-escalate antibiotics accordingly" (6) HIV positive Is this a current diagnosis for this admission?: Yes Plan: Per Previous Physician: "Patient has not established follow-up with outpatient HIV/ID clinic and currently not on HAART CD4 count on his last admission was 350 Currently being treated for community-acquired pneumonia Consider referral to outpatient clinic on discharge for initiation of ART" Missed his follow-up with ID outpatient Not on ART Rough calculation if CD4 count showed likely less than 200 CD /8 count ordered ID consult - Time Time Spent with patient: 35 or more minutes Anticipated Discharge Disposition: Home, Self Care Anticipated Discharge Timeframe: within 72 hours - Inpatient Certification Based on my medical assessment, after consideration of the patient's comorbidities, presenting symptoms, or acuity I expect that the services needed warrant INPATIENT care.: Yes I certify that my determination is in accordance with my understanding of Medicare's requirements for reasonable and necessary INPATIENT services [42 CFR 412.3e].: Yes Medical Necessity: Significant Comorbidiites Make Outpatient Treatment Too Risky, Need Close Monitoring Due to Risk of Patient Decompensation, Need for IV Antibiotics, Risk of Complication if Not Cared For in Hospital, Risk of Diagnosis Which Will Require Inpatient Eval/Care/Monitoring
[2020-11-07] MEDS: FLUCONAZOLE 100 MG TABLET PO SCH (20:34)
[2020-11-07] MEDS ORDERED: SULFAMETHOX/TRIMETH 800-160 MG/10 ML VIAL IV SCH ×2 (22:00)
[2020-11-07] MEDS: SULFAMETHOXAZOLE/TRIMETHOPRIM 320 MG in DEXTROSE 5%-WATER 500 ML IV SCH (22:08)
[2020-11-08] MEDS: OXYCODONE-ACETAMINOPHEN 5-325 MG TABLET PO PRN ×3 (05:35→22:22)
[2020-11-08] MEDS: VANCOMYCIN HCL 750 MG in DEXTROSE 5%-WATER 250 ML IV SCH ×3 (07:01→22:23)
--- NOTE | 2020-11-08 09:31 | RADIOLOGY REPORT (SQ) ---
EXAM DESCRIPTION: CT CHEST WITH IMAGES COMPLETED DATE/TIME: 11/08/2020 8:47 am REASON FOR STUDY: Unresolving pneumonia, sepsis COMPARISON: Chest x-ray dated 11/06/2020. Chest CT dated 09/12/2020. TECHNIQUE: CT scan of the chest performed using helical scanning technique with dynamic intravenous contrast injection. Images reviewed with lung, soft tissue and bone windows. Reconstructed coronal and sagittal MPR and MIP images reviewed. All images stored on PACS. All CT scanners at this facility use dose modulation, iterative reconstruction, and/or weight based d osing when appropriate to reduce radiation dose to as low as reasonably achievable (ALARA). [facility]: Dose Right [facility]: CareDose [facility]: Dose Right [facility]: Teradose 4D [facility]: Hivelocity CONTRAST TYPE AND DOSE: contrast/concentration: Isovue 350.00 mmol/ml; Total Contrast Delivered: 80. 0 ml; Total Saline Delivered: 55.0 ml RENAL FUNCTION: BUN 22 creatinine 1.04. RADIATION DOSE: CT Rad equipment meets quality standard of care and radiation dose reduction techniq ues were employed. CTDIvol: 4.0 mGy. DLP: 161 mGy-cm. . LIMITATIONS: None. FINDINGS: LUNGS AND PLEURA: Extensive consolidation in the left lower lobe. Moderate left pleural e ffusion. Scattered linear densities throughout both lungs, likely atelectasis. Small right pleural effusion. HILAR AND MEDIASTINAL STRUCTURES: No identified masses or abnormal nodes. HEART AND VASCULAR STRUCTURES: No aneurysm or dissection. No central pulmonary emboli. No pericardi al effusion. HARDWARE: None in the chest. UPPER ABDOMEN: No significant findings. Limited exam. THYROID AND OTHER SOFT TISSUES: No masses. No adenopathy. BONES: No significant finding. OTHER: No other significant finding. IMPRESSION: EXTENSIVE CONSOLIDATION IN THE LEFT LOWER LOBE AND MODERATE LEFT PLEURAL EFFUSION. SMAL L RIGHT PLEURAL EFFUSION. SCATTERED ATELECTASIS THROUGHOUT BOTH LUNGS. TECHNICAL DOCUMENTATION: JOB ID: [id number] Quality ID # [id number]: Final reports with documentation of one or more dose reduction techniques (e.g., Au tomated exposure control, adjustment of the mA and/or kV according to patient size, use of iterative reconstruction technique) 2010 [employer]- All Rights Reserved Reading location - IP/workstation name: [email or web address]
[2020-11-08 10:21] LABS: RAPID PLASMA REAGIN REACTIVE 1:8 (NONREACTIVE)
[2020-11-08] MEDS: FLUCONAZOLE 100 MG TABLET PO SCH (10:24)
[2020-11-08] MEDS: FAMOTIDINE 20 MG TABLET PO SCH ×2 (10:24→22:22)
[2020-11-08] MEDS: BUSPIRONE HCL 10 MG TABLET PO SCH ×2 (10:24→22:23)
[2020-11-08] MEDS: ENOXAPARIN SODIUM INJ 40 MG/0.4 ML DISP.SYRIN SUBCUT SCH (10:25)
[2020-11-08] MEDS: LEVOFLOXACIN 750 MG/D5W RTU 750 MG/150 ML RTUPB IV SCH (10:25)
[2020-11-08] MEDS: SULFAMETHOXAZOLE/TRIMETHOPRIM 320 MG in DEXTROSE 5%-WATER 500 ML IV SCH ×3 (11:46→18:19)
[2020-11-08] MEDS: RINGERS SOLUTION,LACTATED 1,000 ML IV PRN (11:51)
--- NOTE | 2020-11-08 18:17 | PDOC PROGRESS REPORT ---
Subjective Subjective:: Per Previous Physician: "ALEXEI MAY is a 25 year old male with a history of HIV infection, anxiety and depression who was recently treated for bilateral pneumonia about a month and half ago now presents with a 5 days duration of cough productive of blood-streaked sputum with associated left-sided pleuritic chest pain which she rates as 10/10 intensity, sharp, aggravated by coughing and deep breathing. Patient also states that he has been feeling short of breath with exertion. He also endorses nausea, vomiting of ingested matter with associated watery diarrhea of the same duration. He also has been having fever and chills. He states that last night he had called EMS and was tested for COVID-19 and was told that it was negative. He denies any history of IV drug use. He also denies any orthopnea, PND, dizziness, leg swelling." 11/07/2020 During our encounter today, patient became tearful intermittently when speaking about his older brother, stating that his older brother is on drugs and is unr eliable in terms of getting the patient to his outpatient appointments. Patient recently missed his ID follow-up for HIV treatment. Given new findings on chest x-ray and recurrent pneumonia, I have ordered a chest CT with contrast to rule out empyema or cavitary process given patient is immunocompromised with untreated HIV. WBC very high at 33. I did direct calculation of the patient's CD4 count using his white blood cell count and lymphocyte percentage and it seems the patient is highly likely to have a CD4 count less than 200 which puts him at great risk for developing a number of opportunistic infections related to HIV/AIDS. I will confirm this with CD4 count blood test. I will treat empirically for PCP pneumonia with Bactrim IV weight-based divided in 3 doses. I ordered an ID consult as well. Cryptococcal serum antigen test has been ordered. We will also get a fungal smear and culture of his sputum. Currently, if he has pneumocystis pneumonia, he does not qualify for adjunct glucocorticoid therapy given he has an oxygen saturation of greater than 92% on room air. 11/08/2020 Patient seems to be doing better today however he states that he still having intermittent severe chest pain. I will consult IR to evaluate his left chest for possible thoracentesis. I believe if he has a large pleural effusion and we can drain most or all of this, the patient will have significant relief of his pain and breathing difficulties. And also be diagnostically quite valuable to s end this fluid for culture and analysis. He is having some hemoptysis today and given that his CD4 count is probably less than 200 we will check him for tuberculosis given his high risk for opportunistic infections. Reason For Visit: HIV POSITIVE Physical Exam Vital Signs: Temp Pulse Resp BP Pulse Ox 97.7 F 91 22 H 123/61 94 11/08/20 15:22 11/08/20 15:22 11/08/20 15:22 11/08/20 15:22 11/08/20 15:22 Intake & Output 11/07/20 11/08/20 11/09/20 06:59 06:59 06:59 Intake Total 3860 5120 1410 Output Total 780 4510 Balance 3080 610 1410 Weight 69.2 kg 69.5 kg Exam: General appearance: PRESENT: no acute distress, well-developed, well-nourished, thin -[place] male, states he is having severe chest pain intermittently throughout the day with breathing Head exam: PRESENT: atraumatic, normocephalic Eye exam: PRESENT: conjunctiva pink. ABSENT: scleral icterus Mouth exam: PRESENT: moist Respiratory exam: PRESENT: Bilateral rhonchi noted worse on the left ABSENT: rales, wheezes Cardiovascular exam: PRESENT: RRR. ABSENT: diastolic murmur, rubs, systolic murmur GI/Abdominal exam: PRESENT: normal bowel sounds, soft. ABSENT: distended, guarding, mass, organolmegaly, rebound, tenderness Neurological exam: PRESENT: alert, awake, oriented to person, oriented to place, oriented to time, oriented to situation Psychiatric exam: PRESENT: appropriate affect, labile mood Skin exam: PRESENT: dry, intact, warm Results Laboratory Results: 11/06/20 18:40 11/06/20 18:40 11/06/20 18:40 Blood Blood Culture (PCR) - Final Streptococcus Pneumoniae Impressions: Chest X-Ray 11/06/20 18:21 IMPRESSION: Interval resolution of right upper lobe pneumonia. Progressive left lower lung consolidation and left pleural effusion. Chest CT 11/08/20 00:00 IMPRESSION: EXTENSIVE CONSOLIDATION IN THE LEFT LOWER LOBE AND MODERATE LEFT PLEURAL EFFUSION. SMALL RIGHT PLEURAL EFFUSION. SCATTERED ATELECTASIS THROUGHOUT BOTH LUNGS. Assessment and Plan - Diagnosis (1) Pneumonia associated with acquired immune deficiency syndrome (AIDS) Is this a current diagnosis for this admission?: Yes (2) Bacteremia due to Streptococcus pneumoniae Is this a current diagnosis for this admission?: Yes (3) Anxiety and depression Is this a current diagnosis for this admission?: Yes (4) Hyponatremia Is this a current diagnosis for this admission?: Yes (5) Sepsis Qualifiers: Sepsis type: sepsis due to unspecified organism Sepsis acute organ dysfunction status: without acute organ dysfunction Qualified Code(s): A41.9 - Sepsis, unspecified organism Is this a current diagnosis for this admission?: Yes (6) HIV positive Is this a current diagnosis for this admission?: Yes - Plan Summary Summary: (1) Pneumonia associated with acquired immune deficiency syndrome (AIDS) Is this a current diagnosis for this admission?: Yes Plan: HIV positive for approximately 1 year, not on any treatment, has missed follow- up appointment with ID after last admission Recurrent pneumonia, recent prior admission for this Calculated CD4 count highly likely less than 200 CD4/8 count ordered Must have follow-up with ID outpatient ID consult Possible pneumocystis pneumonia: Empiric treatment with Bactrim weight-based IV Possible cryptococcal pneumonia: Empiric treatment with fluconazole, serum cryptococcal antigen ordered, sputum fungal culture and smear Strep pneumonia a growing in blood cultures 2/2 CT chest with contrast showed extensive consolidation in left lower lobe and moderate left pleural effusion, right pleural effusion, scattered atelectasis throughout both lungs Antibiotics: Vancomycin/Levaquin/Bactrim/fluconazole Pulmonology consulted (2) Bacteremia due to Streptococcus pneumoniae Is this a current diagnosis for this admission?: Yes (3) Anxiety and depression Is this a current diagnosis for this admission?: Yes Plan: Continue buspirone Needs outpatient follow-up with psychiatry (4) Hyponatremia Is this a current diagnosis for this admission?: Yes Plan: Per Previous Physician: "Likely due to volume depletion from vomiting and diarrhea Currently patient is being hydrated Closely monitor serum electrolytes to avoid overcorrection" Trend BMP (5) Sepsis Qualifiers: Sepsis type: sepsis due to unspecified organism Sepsis acute organ dysfunction status: without acute organ dysfunction Qualified Code(s): A41.9 - Sepsis, unspecified organism Is this a current diagnosis for this admission?: Yes Plan: Per Previous Physician: "Patient presents with fever, cough productive of blood-streaked sputum Patient is HIV positive with most recent CD4 count being 350 about 2 months back Meets sepsis criteria per SIRS: 3/4 Lactic acid level was elevated at 4.0 Leukocytosis with a WBC count of 33.5k with left shift Likely source of infection, left lower lobe pneumonia Chest x-ray shows a progressive left lower lobe consolidation with effusion Patient was hydrated at the ED per sepsis protocol and was given ceftriaxone and azithromycin Patient has MRSA risk factors including recent hospitalization and being treated with same antibiotic stated above Switched his antibiotic to vancomycin and Levaquin Continue IV hydration and closely monitor vital signs Follow-up with blood culture and de-escalate antibiotics accordingly" (6) HIV positive Is this a current diagnosis for this admission?: Yes Plan: Per Previous Physician: "Patient has not established follow-up with outpatient HIV/ID clinic and currently not on HAART CD4 count on his last admission was 350 Currently being treated for community-acquired pneumonia Consider referral to outpatient clinic on discharge for initiation of ART" Missed his follow-up with ID outpatient Not on ART Rough calculation if CD4 count showed likely less than 200 CD 02/13 count ordered ID consult Hemoptysis Possible TB given immunocompromised status QuantiFERON [employer] sputum Airborne isolation - Time Time Spent with patient: 35 or more minutes Medications reviewed and adjusted accordingly: Yes Anticipated Discharge Disposition: Home, Self Care Anticipated Discharge Timeframe: within 72 hours - Inpatient Certification Based on my medical assessment, after consideration of the patient's comorbidities, presenting symptoms, or acuity I expect that the services needed warrant INPATIENT care.: Yes I certify that my determination is in accordance with my understanding of Medicare's requirements for reasonable and necessary INPATIENT services [42 CFR 412.3e].: Yes Medical Necessity: Significant Comorbidiites Make Outpatient Treatment Too Risky, Need Close Monitoring Due to Risk of Patient Decompensation, Need for IV Antibiotics, Risk of Complication if Not Cared For in Hospital, Risk of Diagnosis Which Will Require Inpatient Eval/Care/Monitoring
[2020-11-08 23:06] LABS: VANCOMYCIN,TROUGH 6.4 ug/mL (5.0-20.0)
[2020-11-09] MEDS: RINGERS SOLUTION,LACTATED 1,000 ML IV PRN ×3 (01:08→22:08)
[2020-11-09] MEDS: SULFAMETHOXAZOLE/TRIMETHOPRIM 320 MG in DEXTROSE 5%-WATER 500 ML IV SCH ×3 (01:08→17:44)
[2020-11-09] MEDS: OXYCODONE-ACETAMINOPHEN 5-325 MG TABLET PO PRN (04:22)
[2020-11-09] MEDS: VANCOMYCIN HCL 750 MG in DEXTROSE 5%-WATER 250 ML IV SCH (05:01)
--- NOTE | 2020-11-09 07:42 | Progress Note ---
Provider Note Provider Note: [facility] Telephone Advice Consultation Chart reviewed, patient not seen. Patient is a 25-year-old man with HIV, not on ART who was admitted to the hospital in early September due to Pneumococcal pneumonia and bacteremia. He was treated at that time for 7 days, but now returns to the hospital with worsening symptoms and found septic with WBC 33k. CXR showing resolving right lung process, but worsening left lung opacity and development of pleural effusion. CT scan demonstrating pleural effusion and left lung worsening pneumonia. Blood culture now positive for Streptococcus pneumoniae. He has been on Bactrim for suspected PJP, Fluconazole for suspected Cryptococcus infection, vancomycin and levofloxacin for bacterial pneumonia. ID consulted for recommendations. Allergies: shrimp Allergy (Verified 09/12/20 08:57) Medications: No Home Medications 11/07/20 Vital signs: Temp Pulse Resp BP Pulse Ox 97.8 F 82 16 127/64 H 97 11/09/20 00:00 11/09/20 00:00 11/09/20 00:00 11/09/20 00:00 11/09/20 00:00 Intake & Output 11/08/20 11/09/20 11/10/20 06:59 06:59 06:59 Intake Total 5120 4364 Output Total 4510 1400 Balance 610 2964 Weight 69.5 kg 69.5 kg Weight/Height Weight 69.5 kg Height 5 ft 9 in Laboratories: 11/06/20 18:40 11/06/20 18:40 MCV 84 fl (80-97) 11/06/20 18:40 MCH 28.0 pg (27.0-33.4) 11/06/20 18:40 MCHC 33.3 g/dL (32.0-36.0) 11/06/20 18:40 RDW 14.6 % (11.5-14.0) H 11/06/20 18:40 Seg Neutrophils % Not Reportable 11/06/20 18:40 VBG pH 7.40 (7.30-7.42) 11/06/20 18:40 VBG pCO2 38.7 mmHg (35-63) 11/06/20 18:40 VBG HCO3 23.2 mmol/L (20-32) 11/06/20 18:40 VBG Base Excess -1.4 mmol/L 11/06/20 18:40 Chloride 92 mmol/L (98-107) L 11/06/20 18:40 Carbon Dioxide 26 mmol/L (22-30) 11/06/20 18:40 Anion Gap 12 (5-19) 11/06/20 18:40 Est GFR ( Amer) > 60 (>60) 11/06/20 18:40 Glucose 119 mg/dL (75-110) H 11/06/20 18:40 Lactic Acid 4.0 mmol/L (0.7-2.1) H 11/06/20 18:40 Calcium 8.2 mg/dL (8.4-10.2) L 11/06/20 18:40 Total Bilirubin 1.5 mg/dL (0.2-1.3) H 11/06/20 18:40 AST 68 U/L (17-59) H 11/06/20 18:40 Alkaline Phosphatase 119 U/L (38-126) 11/06/20 18:40 Total Protein 7.2 g/dL (6.3-8.2) 11/06/20 18:40 Albumin 3.1 g/dL (3.5-5.0) L 11/06/20 18:40 11/06/20 18:40 Blood Blood Culture (PCR) - Final Streptococcus Pneumoniae Radiology: Chest X-Ray 11/06/20 18:21 IMPRESSION: Interval resolution of right upper lobe pneumonia. Progressive left lower lung consolidation and left pleural effusion. Chest CT 11/08/20 00:00 IMPRESSION: EXTENSIVE CONSOLIDATION IN THE LEFT LOWER LOBE AND MODERATE LEFT PLEURAL EFFUSION. SMALL RIGHT PLEURAL EFFUSION. SCATTERED ATELECTASIS THROUGHOUT BOTH LUNGS. Assessment and Recommendations: Patient with HIV, not on ART admitted with recurrent Streptococcus pneumoniae bacteremia, pneumonia with possible empyema. This is recurrent infection, probably due to immunosuppressed status he needed a longer course. Will recommend ceftriaxone 1g daily, repeat blood cultures to document clearance of bacteremia, TTE to rule out endocarditis. Thoracentesis is indicated as well. He will need a longer course of antibiootics this time depending on source control and TTE. A minimum of 2 weeks of IV antibiotics will be needed. Please assess for any other areas of possible metastatic infection as C/T?L spine for discitis, epidural abscess, etc. 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 C onsider respiratory culture for silver stain (PJP) and serum cryptococcal antigen to rule out other etiologies, but at this point, consider to de escalate antibiotic therapy to ceftriaxone 1g daily. Patient needs to be encouraged to come to the HIV clinic for therapy. Renate Horner MD [facility] [phone]
[2020-11-09] MEDS: FAMOTIDINE 20 MG TABLET PO SCH ×2 (10:43→22:08)
[2020-11-09] MEDS: BUSPIRONE HCL 10 MG TABLET PO SCH ×2 (10:44→22:08)
[2020-11-09] MEDS: LEVOFLOXACIN 750 MG/D5W RTU 750 MG/150 ML RTUPB IV SCH (10:44)
[2020-11-09] MEDS: ENOXAPARIN SODIUM INJ 40 MG/0.4 ML DISP.SYRIN SUBCUT SCH (10:44)
[2020-11-09] MEDS: FLUCONAZOLE 100 MG TABLET PO SCH (10:45)
[2020-11-09] MEDS ORDERED: VANCOMYCIN HCL 1,250 MG in DEXTROSE 5%-WATER 250 ML IV SCH (14:00)
[2020-11-09] MEDS: CEFTRIAXONE 1 GM/D5W RTU 1 GM/50 ML RTUPB IV SCH (14:18)
--- NOTE | 2020-11-09 18:14 | PDOC PROGRESS REPORT ---
Subjective Date:: 11/09/20 Subjective:: Still complaining of some left lower lateral chest discomfort associated with hi s pleural effusion. He was supposed to get a pleurocentesis this morning but he refused. I explained to him the reasons behind getting it and he agreed to have it done, but it looks like it cannot be done until tomorrow. Reason For Visit: HIV POSITIVE Physical Exam Vital Signs: Temp Pulse Resp BP Pulse Ox 98.2 F 88 17 130/68 H 99 11/09/20 12:00 11/09/20 12:00 11/09/20 12:00 11/09/20 12:00 11/09/20 12:00 Intake & Output 11/08/20 11/09/20 11/10/20 06:59 06:59 06:59 Intake Total 5120 4364 2906 Output Total 4510 1400 3000 Balance 610 2964 -94 Weight 69.5 kg 69.5 kg General appearance: PRESENT: no acute distress, well-developed, well-nourished, thin -[place] male Respiratory exam: PRESENT: Bilateral rhonchi noted worse on the left ABSENT: rales, wheezes Cardiovascular exam: PRESENT: RRR. ABSENT: diastolic murmur, rubs, systolic murmur GI/Abdominal exam: PRESENT: normal bowel sounds, soft. ABSENT: distended, guarding, mass, organolmegaly, rebound, tenderness Neurological exam: PRESENT: alert, awake, oriented to person, oriented to place, oriented to time, oriented to situation Psychiatric exam: PRESENT: appropriate affect, labile mood Skin exam: PRESENT: dry, intact, warm Results Laboratory Results: 11/06/20 18:40 11/06/20 18:40 11/06/20 18:40 Blood Blood Culture (PCR) - Final Streptococcus Pneumoniae 11/06/20 18:40 Blood Blood Culture - Final Streptococcus Pneumoniae Impressions: Chest X-Ray 11/06/20 18:21 IMPRESSION: Interval resolution of right upper lobe pneumonia. Progressive left lower lung consolidation and left pleural effusion. Chest CT 11/08/20 00:00 IMPRESSION: EXTENSIVE CONSOLIDATION IN THE LEFT LOWER LOBE AND MODERATE LEFT PLEURAL EFFUSION. SMALL RIGHT PLEURAL EFFUSION. SCATTERED ATELECTASIS THROUGHOUT BOTH LUNGS. Assessment and Plan - Diagnosis (1) Bacteremia due to Streptococcus pneumoniae Is this a current diagnosis for this admission?: Yes (2) Left lower lobe pneumonia Qualifiers: Pneumonia type: due to unspecified organism Qualified Code(s): J18.9 - Pneumonia, unspecified organism Is this a current diagnosis for this admission?: Yes (3) Pneumonia associated with acquired immune deficiency syndrome (AIDS) Is this a current diagnosis for this admission?: Yes (4) HIV positive Is this a current diagnosis for this admission?: Yes - Plan Summary Summary: His blood culture is positive for Streptococcus pneumoniae. He has a pleural effusion on the left. CD4 count is pending. He was evaluated by infectious disease, Dr. Horner believes that this is a recurrence of his bacterial pneumonia that was not treated long enough in light of his immunosuppression. The recommendation is to de-escalate antibiotics in favor of Rocephin 1 g daily for 2 weeks minimum. This change has been made. His Bactrim and Diflucan are continued temporarily but the vancomycin and Levaquin have been discontinued. He needs a thoracentesis to rule out empyema, and hopefully he will allow us to do this tomorrow. A transthoracic echocardiogram has also been ordered to evaluate for endocarditis. He is being evaluated for TB and cryptococcus but Dr. Horner does not think that that is what is going on in this patient. I strongly encouraged him to follow-up at an HIV clinic when he is released from the hospital and begin treatment for his HIV. - Time Time Spent with patient: 15-24 minutes Anticipated Discharge Disposition: Unknown Anticipated Discharge Timeframe: Unknown
[2020-11-10] MEDS: SULFAMETHOXAZOLE/TRIMETHOPRIM 320 MG in DEXTROSE 5%-WATER 500 ML IV SCH ×3 (01:18→17:35)
[2020-11-10] MEDS: ENOXAPARIN SODIUM INJ 40 MG/0.4 ML DISP.SYRIN SUBCUT SCH (09:44)
[2020-11-10] MEDS: FAMOTIDINE 20 MG TABLET PO SCH ×2 (10:52→21:00)
[2020-11-10] MEDS: FLUCONAZOLE 100 MG TABLET PO SCH (10:52)
[2020-11-10] MEDS: BUSPIRONE HCL 10 MG TABLET PO SCH ×2 (10:52→21:01)
--- NOTE | 2020-11-10 13:24 | RADIOLOGY REPORT (SQ) ---
EXAM DESCRIPTION: U/S CHEST IMAGES COMPLETED DATE/TIME: 11/10/2020 12:43 pm REASON FOR STUDY: Left-sided pleural effusion, pneumonia, HIV COMPARISON: None. TECHNIQUE: Ultrasound left chest performed to assess for thoracentesis. LIMITATIONS: None. FINDINGS: Insufficient fluid for thoracentesis. IMPRESSION: See above. TECHNICAL DOCUMENTATION: JOB ID: [id number] 2010 [employer]- All Rights Reserved Reading location - IP/workstation name: [email or web address]
[2020-11-10] MEDS: CEFTRIAXONE 1 GM/D5W RTU 1 GM/50 ML RTUPB IV SCH (13:41)
[2020-11-10 14:49] LABS: HEMATOCRIT 35.5 % (37.9-51.0); HEMOGLOBIN 12.1 g/dL (13.5-17.0); MEAN CORPUSCULAR HEMOGLOBIN 28.2 pg (27.0-33.4); MEAN CORPUSCULAR HGB CONC 34.1 g/dL (32.0-36.0); MEAN CORPUSCULAR VOLUME 83 fl (80-97); PLATELET COUNT 471 10^3/uL (150-450); RED BLOOD COUNT 4.29 10^6/uL (4.35-5.55); RED CELL DISTRIBUTION WIDTH 14.8 % (11.5-14.0); WHITE BLOOD COUNT 6.6 10^3/uL (4.0-10.5)
[2020-11-10 15:04] LABS: ALBUMIN 3.2 g/dL (3.5-5.0); ALKALINE PHOSPHATASE 82 U/L (38-126); ANION GAP 11 (5-19); ASPARTATE AMINO TRANSFERASE 44 U/L (17-59); BILIRUBIN,DIRECT 0.5 mg/dL (0.0-0.4); BILIRUBIN,TOTAL 0.6 mg/dL (0.2-1.3); BLOOD UREA NITROGEN 11 mg/dL (7-20); CALCIUM 8.9 mg/dL (8.4-10.2); CARBON DIOXIDE 22 mmol/L (22-30); CHLORIDE 104 mmol/L (98-107); GLUCOSE 108 mg/dL (75-110); TOTAL PROTEIN 7.8 g/dL (6.3-8.2)
[2020-11-10 15:18] LABS: ABSOLUTE LYMPHOCYTES# (MANUAL) 1.8 10^3/uL (0.5-4.7); ABSOLUTE MONOCYTES # (MANUAL) 0.5 10^3/uL (0.1-1.4); BAND NEUTROPHILS % (MANUAL) 3 % (3-5); BASOPHILS % (MANUAL) 0 % (0-2); EOSINOPHILS % (MANUAL) 0 % (0-6); LYMPHOCYTES % (MANUAL) 26 % (13-45); MONOCYTES % (MANUAL) 7 % (3-13); SEGMENTED NEUTROPHILS % (MAN) 63 % (42-78); TOTAL CELLS COUNTED 100
[2020-11-10 15:19] LABS: ANISOCYTOSIS SLIGHT; POLYCHROMASIA SLIGHT
[2020-11-10 15:20] LABS: PLATELET COMMENT ADEQUATE
--- NOTE | 2020-11-10 17:33 | PDOC PROGRESS REPORT ---
Subjective Date:: 11/10/20 Subjective:: No adverse events overnight. Vital signs been stable. Radiology came up to do his left-sided thoracentesis to rule out empyema, but when they did the ultrasound they said there was insufficient fluid. This is remarkable, because he had a large amount of fluid on his CT of his chest and his recent chest x- ray. Reason For Visit: HIV POSITIVE Physical Exam Vital Signs: Temp Pulse Resp BP Pulse Ox 98.4 F 94 18 107/64 100 11/10/20 16:01 11/10/20 16:01 11/10/20 16:11/10/20 16:01 11/10/20 16:01 Intake & Output 11/09/20 11/10/20 11/11/20 06:59 06:59 06:59 Intake Total 4364 5548 550 Output Total 1400 5550 Balance 2964 -2 550 Weight 69.5 kg 68.4 kg 68.4 kg General appearance: PRESENT: no acute distress, well-developed, well-nourished, thin -[place] male Respiratory exam: PRESENT: Bilateral rhonchi noted worse on the left ABSENT: rales, wheezes Cardiovascular exam: PRESENT: RRR. ABSENT: diastolic murmur, rubs, systolic murmur GI/Abdominal exam: PRESENT: normal bowel sounds, soft. ABSENT: distended, guarding, mass, organolmegaly, rebound, tenderness Neurological exam: PRESENT: alert, awake, oriented to person, oriented to place, oriented to time, oriented to situation Psychiatric exam: PRESENT: appropriate affect, labile mood Skin exam: PRESENT: dry, intact, warm Results Laboratory Results: 11/10/20 14:20 11/10/20 14:20 11/10/20 11/10/20 14:20 14:20 WBC 6.6 RBC 4.29 L Hgb 12.1 L Hct 35.5 L MCV 83 MCH 28.2 MCHC 34.1 RDW 14.8 H Plt Count 471 H Seg Neutrophils % Not Reportable Sodium 136.5 L Potassium 5.0 Chloride 104 Carbon Dioxide 22 Anion Gap 11 BUN 11 Creatinine 0.73 Est GFR ( Amer) > 60 Glucose 108 Calcium 8.9 Total Bilirubin 0.6 AST 44 Alkaline Phosphatase 82 Total Protein 7.8 Albumin 3.2 L 11/07/20 00:45 Clean Catch Midstream Legionella Urinary Antigen - Final 11/07/20 00:45 Sputum Gram Stain - Final 11/07/20 00:45 Sputum Sputum Culture - Final C.albicans/C.dubliniensis Normal Ashley Impressions: Chest X-Ray 11/06/20 18:21 IMPRESSION: Interval resolution of right upper lobe pneumonia. Progressive left lower lung consolidation and left pleural effusion. Chest CT 11/08/20 00:00 IMPRESSION: EXTENSIVE CONSOLIDATION IN THE LEFT LOWER LOBE AND MODERATE LEFT PLEURAL EFFUSION. SMALL RIGHT PLEURAL EFFUSION. SCATTERED ATELECTASIS THROUGHOUT BOTH LUNGS. Chest Ultrasound 11/10/20 07:00 IMPRESSION: See above. Assessment and Plan - Diagnosis (1) Bacteremia due to Streptococcus pneumoniae Is this a current diagnosis for this admission?: Yes (2) Left lower lobe pneumonia Qualifiers: Pneumonia type: due to unspecified organism Qualified Code(s): J18.9 - Pneumonia, unspecified organism Is this a current diagnosis for this admission?: Yes (3) Pneumonia associated with acquired immune deficiency syndrome (AIDS) Is this a current diagnosis for this admission?: Yes (4) HIV positive Is this a current diagnosis for this admission?: Yes - Plan Summary Summary: His blood culture is positive for Streptococcus pneumoniae. He has a pleural effusion on the left. He was evaluated by infectious disease, Dr. Horner believes that this is a recurrence of his bacterial pneumonia that was not treated long enough in light of his immunosuppression. The recommendation is to de-escalate antibiotics in favor of Rocephin 1 g daily for 2 weeks minimum. This change has been made. His Bactrim and Diflucan are continued temporarily but the vancomycin and Levaquin have been discontinued. A transthoracic echocardiogram has also been ordered to evaluate for endocarditis. He is being evaluated for TB and cryptococcus but Dr. Horner does not think that that is what is going on in this patient. I strongly encouraged him to follow-up at an HIV clinic when he is released from the hospital and begin treatment for his HIV. I am repeating a chest x-ray to see if there is been any interval change in his left pleural effusion. If there is still fluid there, it would need to be drained in case this is an empyema, which is highly possible in this immunocompr omised patient. CD4 count is still pending, last known CD4 count was back in early September and it was 350 at that time. RPR confirmation is pending. Even if it is positive, he should be covered by Rocephin. - Time Time Spent with patient: 15-24 minutes Anticipated Discharge Disposition: Unknown Anticipated Discharge Timeframe: Unknown
--- NOTE | 2020-11-10 18:09 | RADIOLOGY REPORT (SQ) ---
EXAM DESCRIPTION: CHEST SINGLE VIEW IMAGES COMPLETED DATE/TIME: 11/10/2020 2:59 pm REASON FOR STUDY: Left pleural effusion COMPARISON: CT chest 11/08/2020 and single-view chest 11/06/2020 EXAM PARAMETERS: NUMBER OF VIEWS: One view. TECHNIQUE: Single frontal radiographic view of the chest acquired. RADIATION DOSE: NA LIMITATIONS: None. FINDINGS: LUNGS AND PLEURA: No significant change in left basilar consolidation and left pleural eff usion. Trace right pleural effusion. No pneumothorax. MEDIASTINUM AND HILAR STRUCTURES: No masses. Contour normal. HEART AND VASCULAR STRUCTURES: Heart normal in size. Normal vasculature. BONES: No acute findings. HARDWARE: None in the chest. OTHER: No other significant finding. IMPRESSION: No significant change in left basilar consolidation and pleural effusion. TECHNICAL DOCUMENTATION: JOB ID: [id number] [employer]- All Rights Reserved Reading location - IP/workstation name: [email or web address]
[2020-11-10] MEDS: RINGERS SOLUTION,LACTATED 1,000 ML IV PRN (20:54)
[2020-11-11] MEDS: SULFAMETHOXAZOLE/TRIMETHOPRIM 320 MG in DEXTROSE 5%-WATER 500 ML IV SCH ×2 (02:44→10:57)
[2020-11-11] MEDS: RINGERS SOLUTION,LACTATED 1,000 ML IV PRN (05:58)
[2020-11-11 06:58] LABS: HEMATOCRIT 35.6 % (37.9-51.0); HEMOGLOBIN 12.2 g/dL (13.5-17.0); MEAN CORPUSCULAR HEMOGLOBIN 28.4 pg (27.0-33.4); MEAN CORPUSCULAR HGB CONC 34.2 g/dL (32.0-36.0); MEAN CORPUSCULAR VOLUME 83 fl (80-97); PLATELET COUNT 493 10^3/uL (150-450); RED BLOOD COUNT 4.29 10^6/uL (4.35-5.55); RED CELL DISTRIBUTION WIDTH 15.2 % (11.5-14.0); WHITE BLOOD COUNT 5.9 10^3/uL (4.0-10.5)
[2020-11-11 07:08] LABS: ANION GAP 12 (5-19); BLOOD UREA NITROGEN 11 mg/dL (7-20); CALCIUM 8.7 mg/dL (8.4-10.2); CARBON DIOXIDE 19 mmol/L (22-30); CHLORIDE 104 mmol/L (98-107); GLUCOSE 120 mg/dL (75-110); POTASSIUM 5.3 mmol/L (3.6-5.0)
[2020-11-11 07:47] LABS: ABSOLUTE LYMPHOCYTES# (MANUAL) 1.5 10^3/uL (0.5-4.7); ABSOLUTE MONOCYTES # (MANUAL) 0.7 10^3/uL (0.1-1.4); BAND NEUTROPHILS % (MANUAL) 3 % (3-5); BASOPHILS % (MANUAL) 0 % (0-2); EOSINOPHILS % (MANUAL) 1 % (0-6); LYMPHOCYTES % (MANUAL) 23 % (13-45); METAMYELOCYTES % (MANUAL) 4 % (0-1); MONOCYTES % (MANUAL) 12 % (3-13); SEGMENTED NEUTROPHILS % (MAN) 54 % (42-78); TOTAL CELLS COUNTED 100
[2020-11-11 07:48] LABS: ANISOCYTOSIS SLIGHT; POLYCHROMASIA SLIGHT
[2020-11-11 07:49] LABS: PLATELET COMMENT INCREASED; PLATELET LARGE PRESENT; POIKILOCYTOSIS SLIGHT; TEAR DROP CELLS SLIGHT
[2020-11-11] MEDS: ENOXAPARIN SODIUM INJ 40 MG/0.4 ML DISP.SYRIN SUBCUT SCH (10:52)
[2020-11-11] MEDS: BUSPIRONE HCL 10 MG TABLET PO SCH (10:57)
[2020-11-11] MEDS: FAMOTIDINE 20 MG TABLET PO SCH (10:57)
[2020-11-11] MEDS: FLUCONAZOLE 100 MG TABLET PO SCH (10:57)
[2020-11-11 11:32] LABS: PATH REVIEW PATHOLOGIST REVIEWED
[2020-11-11] MEDS: CEFTRIAXONE 1 GM/D5W RTU 1 GM/50 ML RTUPB IV SCH (13:00)
[2020-11-11 13:39] VITALS: BP 106/53
--- NOTE | 2020-11-11 14:26 | RADIOLOGY REPORT (SQ) ---
EXAM DESCRIPTION: U/S CHEST IMAGES COMPLETED DATE/TIME: 11/11/2020 2:11 pm REASON FOR STUDY: persistent left pleural effusion, r/o empyema COMPARISON: None. TECHNIQUE: Dynamic and static grayscale images acquired of the localized site of clinical concern an d recorded on PACS. Additional selected color Doppler and spectral images recorded. SITE OF CONCERN: Left pleural space LIMITATIONS: None. FINDINGS: Very small left effusion. Thoracentesis was not performed. IMPRESSION: Small left effusion. No interval change from 11/09/2020 TECHNICAL DOCUMENTATION: JOB ID: [id number] [employer]- All Rights Reserved Reading location - IP/workstation name: [email or web address]
[2020-11-11 15:37] LABS: % CD 4 POS LYMPH 25.1 % (30.8-58.5); % CD 8 POS LYMPH 60.4 % (12.0-35.5); ABSOLUTE CD 4 HELPER 954 /uL (359-1519); ABSOLUTE CD 8 SUPPRESSOR 2295 /uL (109-897); BASOPHILS (ABSOLUTE) 0.1 x10E3/uL (0.0-0.2); CD BASOPHILS 1 % (Not Estab.); CD EOSINOPHILS 3 % (Not Estab.); CD MONOCYTES 10 % (Not Estab.); CD NEUTROPHILS 59 % (Not Estab.); CD4/CD8 RATIO 0.42 (0.92-3.72); EOSINOPHILS (ABSOLUTE) 0.4 x10E3/uL (0.0-0.4); HEMOGLOBIN 11.1 g/dL (13.0-17.7); IMMATURE CELLS Note (.); LYMPHS(ABSOLUTE) 3.8 x10E3/uL (0.7-3.1); MCHC 34.2 g/dL (31.5-35.7); MCV 83 fL (79-97); METAMYELOCYTES 1 % (0 - 0); PLATELETS 410 x10E3/uL (150-450); RBC 3.94 x10E6/uL (4.14-5.80); WBC 14.6 x10E3/uL (3.4-10.8)
--- NOTE | 2020-11-11 16:41 | Left Against Medical Advice ---
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 ALEXEI MAY is a 25 M, who LEFT AGAINST MEDICAL ADVICE. The Patient was admitted on 11/06/20 21:49. He was being treated for numerous serious medical problems and being worked up for several others, and despite our efforts to convince him to stay and reminding him that his health and life were at risk if he left, he decided to leave anyway.
--- NOTE | 2020-11-11 18:38 | XCELERA REPORT ---
[address] [address] Transthoracic Echocardiogram Report Name: ALEXEI MAY Age: 25 yrs Gender: Male : 1995 Patient Status: Inpatient Patient Location: [address] [place] [address] Study Date: 11/11/2020 09:32 AM History: Bacteremia Height: 69 in Weight: 153 lb BSA: 1.8 m2 Procedure: A complete two-dimensional transthoracic echocardiogram was performed (2D, M-mode, spectral and color flow Doppler). 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 Unable to exclude vegetation on the mitral valve. KESHAV can be considered if clinically indicated. The left ventricle is hyperdynamic. The Ejection Fraction estimate is >70% The right ventricle is normal in size and function. A vegetation on the mitral valve cannot be excluded. There is a trace amount of mitral regurgitation There is a small vegetation or mass on the aortic valve. There is a trace amount of tricuspid regurgitation Minimal pericardial effusion. 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 Unable to exclude vegetation on the mitral valve. KESHAV can be considered if clinically indicated. MMode/2D Measurements & Calculations RVDd: 3.0 cm LVIDd: 3.9 cm FS: 38.0 % Ao root diam: 2.5 cm IVSd: 0.76 cm LVIDs: 2.4 cm EDV(Teich): 65.3 ml Ao root area: 4.8 cm2 LVPWd: 0.89 cm ESV(Teich): 20.4 ml EF(Teich): 68.8 % Doppler Measurements & Calculations MV E max rasta: MV dec slope: Ao V2 max: LV V1 max P.0 cm/sec 456.5 cm/sec2 116.7 cm/sec 4.8 mmHg MV A max rasta: MV dec time: 0.19 sec Ao max P.4 mmHgLV V1 max: 40.9 cm/sec 109.4 cm/sec MV E/A: 2.1 PA V2 max: PI end-d rasta: TR max rasta: 80.0 cm/sec 137.0 cm/sec 258.7 cm/sec PA max P.6 mmHg TR max P.8 mmHg Left Ventricle The left ventricle is normal in size. There is normal left ventricular wall thickness. The Ejection Fraction estimate is >70%. The left ventricle is hyperdynamic. Doppler measurements suggest normal left ventricular diastolic function. The left ventricular wall motion is normal. Right Ventricle The right ventricle is normal in size and function. Atria The right atrium is normal. The left atrial size is normal. The interatrial septum is intact with no evidence for an atrial septal defect. There is no Doppler evidence for an interatrial shunt. Mitral Valve The mitral valve is grossly normal. A vegetation on the mitral valve cannot be excluded. There is no mitral valve stenosis. There is a trace amount of mitral regurgitation. Aortic Valve The aortic valve opens well. There is a small vegetation or mass on the aortic valve. Non coronary cusp-vegetation. There is no aortic valve stenosis. No aortic regurgitation is present. Tricuspid Valve The tricuspid valve is normal in structure and function. There is no tricuspid stenosis. There is a trace amount of tricuspid regurgitation. Tricuspid regurgitation jet envelope not well defined to measure RV systolic pressure accurately. Pulmonic Valve The pulmonic valve is normal in structure and function. There is no pulmonic valvular stenosis. There is a mild amount of pulmonic regurgitation. Great Vessels The aortic root is normal size. Effusions Minimal pericardial effusion. Moderate size left pleural effusion. : AVIS TOLEDO Anil
== END 2020-11-11 15:54 | disposition left against medical advice (07) | DRG 974 ==
LOC: ER 17:37 → EH 21:49 → 4N 11-07 00:15 → 3S 11-08 23:06
PROVIDERS: ADMIT Student in an Organized Health Care Education/Training Program; ATTEND Family Medicine
PROC: B24BZZZ Ultrasonography of Heart with Aorta (ICD-10-PCS; principal; 2020-11-11)
DX: B20 Human immunodeficiency virus [HIV] disease (principal); J18.9 Pneumonia, unspecified organism; A40.3 Sepsis due to Streptococcus pneumoniae; E87.1 Hypo-osmolality and hyponatremia; R04.2 Hemoptysis; B95.3 Streptococcus pneumoniae as the cause of diseases classified elsewhere; F41.9 Anxiety disorder, unspecified; F32.9 Major depressive disorder, single episode, unspecified; Z20.822 Contact with and (suspected) exposure to COVID-19; Z86.14 Personal history of Methicillin resistant Staphylococcus aureus infection; Z79.899 Other long term (current) drug therapy; Z91.013 Allergy to seafood
CPT/HCPCS: 36415; 71045; 71260; 76604; 80048; 80053; 80202; 82803; 82962; 83605; 85025; 85610; 86360; 86480; 86592; 87040; 87070; 87077; 87101; 87150; 87186; 87205; 93005; 93010; 93306; 96361; 96365; 96368; 99285; 0241U; C9803; J0456; J0696; J1650; J1956; J3370; J3490; J7030; J7060; J7120